=== PATIENT | female | born 1945 | race Caucasian/White ===

== ENCOUNTER 2016-12-23 17:03 | Inpatient (IN) ==
[2016-12-23] MEDS ORDERED: Furosemide 40 MG/4 ML VIAL IVP ONE (19:08)
--- NOTE | 2016-12-23 19:15 | Internal Med History&Physical ---
Date of Encounter: 12/23/16 Time of Encounter: 19:09 Assessment and Plan (1) HTN (hypertension) Current visit: Yes Status: Chronic resume home meds Qualifiers: Hypertension type: essential hypertension Qualified Code(s): I10 - Essential (primary) hypertension (2) NSTEMI (non-ST elevated myocardial infarction) Current visit: Yes Status: Acute no chest pain but nstemi (3) UTI (urinary tract infection) Current visit: Yes Status: Acute start on rocephine ansd send ua and cultures Qualifiers: Urinary tract infection type: acute cystitis Hematuria presence: without hematuria Qualified Code(s): N30.00 - Acute cystitis without hematuria (4) Diabetes Current visit: Yes Status: Chronic start on sliding scale Qualifiers: Diabetes mellitus type: type 2 Diabetes mellitus complication status: with unspecified complications Diabetes mellitus long term care pharmacist insulin use: unspecified intermediate insulin use status Qualified Code(s): E11.8 - Type 2 diabetes mellitus with unspecified complications (5) Smoker Current visit: Yes Status: Chronic chronic (6) Acute and chronic respiratory failure Current visit: Yes Status: Acute acute on chronic respiratory failure placed on bipap will place on dueneb and low dose steroid Qualifiers: Respiratory failure complication: hypoxia and hypercapnia Qualified Code(s) : J96.21 - Acute and chronic respiratory failure with hypoxia; J96.22 - Acute and chronic respiratory failure with hypercapnia (7) Pleural effusion Current visit: Yes Status: Acute liekly due to chf consider thoracentesis if no significant resolution with diuresis (8) Acute exacerbation of chronic obstructive airways disease Current visit: No Status: Acute acute on chronic exercebation (9) Congestive heart failure Current visit: No Status: Acute no documented lv function will diuress, obtain echo and cardiology consult Qualifiers: Congestive heart failure type: unspecified congestive heart failure type Congestive heart failure chronicity: unspecified congestive heart failure chronicity Qualified Code(s): I50.9 - Heart failure, unspecified Internal Medicine - H&P: HPI Chief complaint: sob Admitted From: Hospital to Hospital Transfer Plans for Post Hospital Care: Home History of present illness: Ms. Fontanez is a 71 year old female Patient with history of obesity, diabetes, hypertension, COPD, smoking, patient presented today to [facility] with shortness of breath and leg swelling for several months more than for 3 months with intermittent wheezing denies any cough, no chest pain symptoms has progressively gotten worse with weakness and fatigue and worsening shortness of breath to do point the family insisted that she would go to emergency room called 911 on her behalf Hospital ER ABG showed respiratory failure PH 7.28 PCO2 was 75 and placed on bipap and transfered here admitted to 2N also has massive leg edema chest x-ray consistent with congestive heart failure , no pneumonia bialt pleural effusion right more than left she was transferred here for further treatment troponin 0.14 , BNP 2753 UA also shows a UTI patient is awake on BiPAP denies any chest pain appears comfortable at this point. Past Med Surg Social Fam HX - Past Medical History Medical history: COPD, diabetes Psychiatric history: no psych history - Social History Smoking Status: Current every day smoker Smokeless Tobacco Status: No Alcohol use: none Drug use: none Internal Medicine - H&P: Meds No Known Home Drugs 12/23/16 [History] Allergies No Known Allergies Allergy (Verified 12/23/16 14:57) All Systems PM: A 10-system review of systems was performed and is negative for pertinent findings except as documented above in the HPI. - Constitutional Constitutional: fatigue - EENT Eyes: no change in vision, no discharge, no pain, no photophobia Ears: no ear discharge, no ear pain, no tinnitus Nose, mouth and throat: no dysphagia, no nasal discharge, no neck pain, no sore throat - Cardiovascular Cardiovascular ROS IM: dyspnea, dyspnea on exertion - Respiratory Respiratory: dyspnea, dyspnea on exertion, wheezing - Gastrointestinal Gastrointestinal: no abdominal pain, no diarrhea, no hematemesis, no hematochezia, no melena, no nausea, no vomiting - Genitourinary Genitourinary: no change in urinary stream, no dysuria, no flank pain, no hematuria - Musculoskeletal Musculoskeletal ROS IM: no numbness, no tingling - Integumentary Integumentary IM: no rash, no unusual bruising - Neurological Neurological ROS: no confusion, no convulsions, no focal weakness, no numbness, no tingling, no tremor(s) - Hematologic/Lymphatic Hematologic/Lymphatic: no easy bruising - Constitutional Vitals: Resp Pulse Ox 19 94 12/23/16 18:45 12/23/16 18:45 General appearance: Present: mild distress - Eye Eye exam: Present: PERRL, conjuntiva pink, sclera anicteric Pupils: Present: PERRL - Neck Neck exam general surgery: Present: supple, trachea midline. Absent: lymphadenopathy - Respiratory Respiratory exam: Present: rales, rhonchi, wheezes - Cardiovascular Cardiovascular exam: Present: systolic murmur, tachycardia - GI/Abdominal GI/Abdominal exam: Present: normal bowel sounds, soft, no peritoneal signs. Absent: distended, tenderness - Extremities Exam Extremities exam: Present: pedal edema, warm
[2016-12-23] MEDS ORDERED: Naloxone 0.4 MG/ML INJ IVP PRN (19:24)
[2016-12-23] MEDS ORDERED: *HR* Morphine 2 MG/ML SYRINGE IVP PRN (19:24)
[2016-12-23] MEDS ORDERED: Ondansetron 4 MG/2 ML VIAL IVP PRN (19:24)
[2016-12-23] MEDS ORDERED: MOM Conc 10 ML UD.LIQ PO PRN (19:24)
[2016-12-23] MEDS ORDERED: Ipratropium/Albuterol Neb 3 ML IH PRN (19:28)
[2016-12-23] MEDS: Ipratropium/Albuterol Neb 3 ML IH SCH ×2 (20:04→23:57)
[2016-12-23 20:08] LABS: ABG Base Excess 9.2 mEq/L (-2.0 to 3.0); ABG HCO3 39.2 mEQ/L (21-27); ABG Oxygen Saturation 90 % (95-98); ABG PH 7.32 pH Units (7.32-7.45); ABG PO2 63 mmHg (85-104); ABG TCO2 41.5 mEq/L (20-26)
[2016-12-23 20:09] LABS: Blood Gas FiO2 40 %
[2016-12-23 20:10] LABS: ABG PCO2 76 mmHg (35-45)
[2016-12-23] MEDS: Furosemide 40 MG/4 ML VIAL IVP SCH (23:42)
[2016-12-24 03:55] LABS: Basophils % 0.3 %; Hematocrit 47.8 % (35.3-44.9); Hemoglobin 14.5 g/dL (11.5-15.4); Immature Granulocytes % 0.3 % (0-4); Lymphocytes # 0.5 K/mcL (0.6-4.6); Lymphocytes % 11.3 %; Mean Corpuscular HGB Conc 30.3 g/dL (31.6-35.5); Mean Corpuscular Hemoglobin 27.3 pg (28.0-33.3); Mean Platelet Volume 11.4 fL (9.4-12.4); Monocytes # 0.2 K/mcL (0.0-1.3); Monocytes % 3.8 %; Neutrophils # 3.4 K/mcL (1.6-8.9); Platelet Count 101 K/mcL (140-400); Red Blood Count 5.31 M/mcL (3.82-4.97); Red Cell Distribution Width 16.2 % (11.5-14.5); Segmented Neutrophils % 84.3 %
[2016-12-24] MEDS: Ipratropium/Albuterol Neb 3 ML IH SCH ×6 (04:08→23:42)
[2016-12-24 04:12] LABS: Alanine Aminotransferase 7 Units/L (0-55); Albumin 2.7 g/dL (3.5-5.0); Albumin/Globulin Ratio 0.8 (1.1-2.2); Alkaline Phosphatase 88 Units/L (38-126); Aspartate Amino Transferase 15 Units/L (5-34); BUN/Creatinine Ratio 14 (6-26); Bilirubin,Total 0.6 mg/dL (0.2-1.2); Blood Urea Nitrogen 10 mg/dL (7-20); Calcium 7.9 mg/dL (8.6-10.8); Carbon Dioxide 31 mEq/L (19-29); Chloride 98 mEq/L (98-109); Cholesterol 137 mg/dL (< 200); Globulin 3.5 g/dL (2.4-3.5); Glucose 256 mg/dL (70-99); HDL Cholesterol 34 mg/dL (40-59); LDL Cholesterol,Calculated 86 mg/dL (0-99); Magnesium 1.4 mg/dL (1.6-2.6); Osmolality,Calculated 298 (280-300); Sodium 140 mEq/L (136-145); Total Protein 6.2 g/dL (6.0-8.3); Triglycerides 85 mg/dL (< 150); eGFR For African Americans > 60 (> 60); eGFR For Non-African Americans > 60 (> 60)
[2016-12-24] MEDS: MethylPREDNISolone 40 MG/ML VIAL IVP SCH ×2 (06:00→17:15)
[2016-12-24] MEDS: *HR* Enoxaparin 40 MG/0.4 ML SYRINGE SQ SCH ×2 (06:00→06:22)
--- NOTE | 2016-12-24 09:36 | ECHO - Doppler Report ---
Echocardiogram Name: Nata Fontanez Date of Study: 12/24/2016 Date: 1945 Ht: 62.0 in Medical Record#: [id number] Age: 71 Wt: 227.0 lb Gender: Female BSA: 2.02 Order #: [id number] Location: [facility] Room #: 2N08 Reading Physician: Alejandro Aponte DO, TEJ KELLY Contact Lens Molder: Getachew Mao RN Ordering Physician: Bhakti Sarkar MD Primary Physician: None Indications: Congestive heart failure Impressions: LVEF 40%. Normal LV chamber size and wall thickness. Gllobal left ventricular systolic dysfunction. Mild left ventricular diastolic dysfunction. Mildly dilated right ventricle with normal function. Moderately dilated left atrium. Moderately dilated right atrium. Mild aortic regurgitation. Mild tricuspid regurgitation. Moderate pulmonary hypertension. Estimated RVSP is 48 mmHg. Left Ventricular Wall Motion: Rest Echo Findings The apex, apical inferior, mid inferior, basal inferior, apical anterior, mid anterior, basal anterior, apical septal, mid inferior septal, basal inferior septal, apical lateral, mid anterior lateral, basal anterior lateral, mid anterior septal, mid inferior lateral, basal anterior septal and basal inferior lateral spain were hypokinetic. Findings: Study Quality * Technically adequate exam. ECG Findings * Normal sinus rhythm. Left Ventricle * LVEF 40%. * Normal LV chamber size and wall thickness. * Gllobal left ventricular systolic dysfunction. * Mild left ventricular diastolic dysfunction. Right Ventricle * Mildly dilated right ventricle with normal function. Left Atrium * Moderately dilated left atrium. Right Atrium * Moderately dilated right atrium. Interatrial Septum * Interatrial septum not well evaluated. Aortic Valve * Trileaflet aortic valve. * Mild aortic regurgitation. * No aortic stenosis. Mitral Valve * Mildly thickened mitral valve leaflets. * Trace mitral regurgitation. * No mitral stenosis. Tricuspid Valve * Normal tricuspid valve structure. * Mild tricuspid regurgitation. * Moderate pulmonary hypertension. * Estimated RVSP is 48 mmHg. * Estimated RA pressure is 5 mmHg. Pulmonic Valve * Normal pulmonic valve structure and function. * Trace pulmonic regurgitation. Aorta * Normally sized aortic root. Pericardium * There is a trivial pericardial effusion present. IVC * Normal IVC dimensions and inspiratory collapse. Pulmonary Artery * Normal visualized portions of the main pulmonary artery. History Hypertension Diabetes History of Smoking Years 55 Packs 1 Congestive Heart Failure Measurements: BP: 133/ 69 2D Normal Values RVIDd: 3.70 cm <2.7 cm IVSd: 1.10 cm 0.6 - 1.0 cm LVIDd: 5.40 cm 3.7 - 5.6 cm LVPWd: 1.10 cm 0.6 - 1.1 cm LVIDs: 4.50 cm 1.5 - 3.6 cm LA: 3.80 cm 2.0 - 4.0cm %FS: 21.10 cm >25 % LVOT Diam: 1.80 cm LA volume: 98 Mitral Valve Peak E:.94 m/sec Peak A:1.02 m/sec E/A Ratio:0.9 Peak E' Lat Geraldo:4.87 cm/s Peak E' Med Geraldo:3.31 cm/s E/E' Lat Ratio:19.4 E/E' Med Ratio:28.5 Aortic Valve AI pressure Half-time: 477.00 msec Tricuspid Valve TV Regurg Peak Grad: 43.00mmHg TV Regurg Peak Geraldo: 3.27m/sec Updated by Alejandro Aponte DO, FACShauna, TEJ, REDDY on 12/24/2016 9:29:37 AM electronically signed on 12/24/2016 9:31:04 AM with status of Final Wall Motion Coreas: 1=Normal, 2=Hypokinesis, 3=Akinesis, 4=Dyskinesis, 5=Aneurysmal, 6=Hyperkinetic, X=Not Visualized (Blank)=Missing
[2016-12-24] MEDS: Furosemide 40 MG/4 ML VIAL IVP SCH ×2 (09:58→17:21)
--- NOTE | 2016-12-24 10:05 | Cardiology Consult Note ---
<Edilberto Stone Jimena - Last Filed: 12/24/16 10:00> Date of Encounter: 12/24/16 Time of Encounter: 10:00 Assessment and Plan (1) Congestive heart failure Current Visit: Yes Status: Acute Months of dyspnea, leg swelling, and fatigue BNP of 2539 Echo is pending today. Will follow up and give further recommendations Agree with diuresis and Bipap as needed Troponin likely elevated due to demand ischemia Qualifiers: Congestive heart failure type: unspecified congestive heart failure type Congestive heart failure chronicity: unspecified congestive heart failure chronicity Qualified Code(s): I50.9 - Heart failure, unspecified (2) Elevated troponin Current Visit: Yes Status: Acute Troponin elevated 0.14, 0.12, 0.11 Likely due to demand ischemia Cardiac rehab not indicated at this time Do not recommend full anticoagulation at this time as this is likely due to demand ischemia and not an acute MO Recommend starting 81mg of asa (3) HTN (hypertension) Current Visit: Yes Status: Chronic Agree with starting lisinipril and coreg. Qualifiers: Hypertension type: essential hypertension Qualified Code(s): I10 - Essential (primary) hypertension Discussion w patient/family: The assessment and plan as outlined above was discussed with the patient and/or family members who expressed understanding and agreement. All questions were answered. Thank you for involving us in the care of your patient. Please call with any questions. History of Present Illness Consult date: 12/24/16 Consult reason: New onset CHF, elevated troponin Chief complaint: Dyspnea, leg swelling, fatigue History of present illness: Ms. Fontanez is a 71 year old female who reports she has not seen a physician in many years. She reports dyspnea, leg swelling, and fatigue over the last few months. It has been worsening to the point where yesterday she was unable to get out of bed so called EMS. Her SPO2 was 74% on RA in the ER and she was placed on BiPap. She reports she is feeling much better while on Bipap. It does seem years ago she was diagnosed with COPD, DM, and HTN. Cardiology was consulted due to new CHF, with elevated troponin 0.14, 0.12, 0.11, and elevated BNP 2539. Was also found to have a UTI. She denies having chest pain but does have dyspnea. Past Med Surg Social Fam HX - Past Medical History Medical history: COPD, diabetes Psychiatric history: no psych history - Social History Smoking Status: Current every day smoker Smokeless Tobacco Status: No Alcohol use: none Drug use: none Medications and Allergies No Known Home Drugs 12/23/16 [History] Allergies No Known Allergies Allergy (Verified 12/23/16 14:57) All Systems Review: A 10-system review of systems was performed and is negative for pertinent findings except as documented above in the HPI. - Constitutional Constitutional: fatigue, weakness, no fever(s) - Cardiovascular Cardiovascular: dyspnea at rest, no chest pain at rest, no chest pain with exertion, no palpitations, no syncope - Respiratory Respiratory: cough - Gastrointestinal Gastrointestinal: no abdominal pain - Genitourinary Genitourinary: no dysuria - Musculoskeletal Musculoskeletal: other (LE edema bilateral) - Hematological/Lymphatic Hematologic/Lymphatic: no easy bleeding Physical Examination Vital Signs, Last 4 Hours Temp Pulse Resp BP Pulse Ox 12/24/16 07:41 15 133/69 96 12/24/16 07:38 97.8 F 84 14 133/69 94 General: Conversant HEENT: Atraumatic Neck: No JVD Cardiac: Reg Rate and Rhythm, Normal S1 and S2 Lungs: Other (Bipap. Wheezes present.) Neuro: Alert and responsive Abdomen: Soft Skin: Other (LE edema with mild erythema. Bilateral. 3+ pitting) Extremities: No Cyanosis, Normal Pulses Results 12/24/16 03:10 12/24/16 03:10 Lab Results 12/23/16 12/24/16 12/24/16 20:12 03:10 03:10 WBC 4.0 L Hgb 14.5 Hct 47.8 H Plt Count 101 L Sodium Potassium Chloride Carbon Dioxide BUN Creatinine Glucose Calcium Magnesium Total Bilirubin AST ALT Alkaline Phosphatase Troponin I 0.12 H* 0.11 H* B-Natriuretic Peptide 12/24/16 12/24/16 12/24/16 03:10 03:10 08:08 WBC Hgb Hct Plt Count Sodium 140 Potassium 4.0 Chloride 98 Carbon Dioxide 31 H BUN 10 Creatinine 0.73 Glucose 256 H Calcium 7.9 L Magnesium 1.4 L Total Bilirubin 0.6 AST 15 ALT 7 Alkaline Phosphatase 88 Troponin I 0.10 H* B-Natriuretic Peptide 2539 H - EKG Interpretation EKG results cardiology: personally reviewed Consult Discharge Plan - Plan Referrals: NO,PCP [Primary Care Provider] - <Zysek,Lissy - Last Filed: 12/24/16 12:10> Date of Encounter: 12/24/16 Assessment and Plan Discussion w patient/family: The assessment and plan as outlined above was discussed with the patient and/or family members who expressed understanding and agreement. All questions were answered. Thank you for involving us in the care of your patient. Please call with any questions. History of Present Illness History of present illness: Ms. Fontanez is a 71 year old female All Systems Review: A 10-system review of systems was performed and is negative for pertinent findings except as documented above in the HPI. Physical Examination Vital Signs, Last 4 Hours Pulse Pulse Ox 12/24/16 09:50 80 93 Results 12/24/16 03:10 12/24/16 03:10 Lab Results 12/23/16 12/24/16 12/24/16 20:12 03:10 03:10 WBC 4.0 L Hgb 14.5 Hct 47.8 H Plt Count 101 L Sodium Potassium Chloride Carbon Dioxide BUN Creatinine Glucose Calcium Magnesium Total Bilirubin AST ALT Alkaline Phosphatase Troponin I 0.12 H* 0.11 H* B-Natriuretic Peptide 12/24/16 12/24/16 12/24/16 03:10 03:10 08:08 WBC Hgb Hct Plt Count Sodium 140 Potassium 4.0 Chloride 98 Carbon Dioxide 31 H BUN 10 Creatinine 0.73 Glucose 256 H Calcium 7.9 L Magnesium 1.4 L Total Bilirubin 0.6 AST 15 ALT 7 Alkaline Phosphatase 88 Troponin I 0.10 H* B-Natriuretic Peptide 2539 H - Attending Attestation I examined this patient and my medical decision-making was reviewed with the LINK TRAINER MAINTENANCE WORKER/PA/Advanced Practice Nurse/Resident Physician. I agree with the documented findings, disposition and treatment plan. Ms. Fontanez presents with hypoxic respiratory failure, congestive symptoms with elevated BNP and mild elevation of troponin. Her symptoms have been ongoing and progressive over the past 3 months. Her ECG does not demonstrate acute findings but possible old anteroseptal MO. I agree with IV diuresis and addition of aspirin. At the time I evaluated and spoke with the patient, her echo was pending. However, results returned, demonstrating reduced LVEF, 40%. Troponin elevation was initially thought to be demand ischemia. Now given new findings of reduced LVEF, would recommend considering LHC. I will discuss this with the patient. In the meantime, recommend starting full anticoagulation. Consider starting statin once LHC results return. LDL and TG are good.
--- NOTE | 2016-12-24 11:16 | Internal Med Progress Note ---
Date of Encounter: 12/24/16 Time of Encounter: 09:00 - Assessment and plan (1) DVT prophylaxis Current Visit: Yes Status: Acute Assessment and plan: On lovenox sc (2) Acute exacerbation of chronic obstructive airways disease Current Visit: No Status: Acute Assessment and plan: Will continue steroid and bronchodilator treatment. Smoking cessation education. Continue supportive treatment with BiPAP. (3) Congestive heart failure Current Visit: Yes Status: Acute Assessment and plan: Patient has elevated BNP, with pleural effusion, leg swelling. Consider CHF. No history of CHF. - We will obtain echo. - Continue diuretics. - Strict I and O - Cardiology consult appreciated Qualifiers: Congestive heart failure type: unspecified congestive heart failure type Congestive heart failure chronicity: unspecified congestive heart failure chronicity Qualified Code(s): I50.9 - Heart failure, unspecified (4) HTN (hypertension) Current Visit: Yes Status: Chronic Assessment and plan: BP is stable, continue home medications Qualifiers: Hypertension type: essential hypertension Qualified Code(s): I10 - Essential (primary) hypertension (5) UTI (urinary tract infection) Current Visit: Yes Status: Acute Assessment and plan: Continue IV Rocephin. Qualifiers: Urinary tract infection type: acute cystitis Hematuria presence: without hematuria Qualified Code(s): N30.00 - Acute cystitis without hematuria (6) Diabetes Current Visit: Yes Status: Chronic Assessment and plan: Not sure home medication, glucose is high, will place patient on the sliding scale coverage. Qualifiers: Diabetes mellitus type: type 2 Diabetes mellitus complication status: with unspecified complications Diabetes mellitus intermediate accountant insulin use: unspecified detention insulin use status Qualified Code(s): E11.8 - Type 2 diabetes mellitus with unspecified complications (7) Acute and chronic respiratory failure Current Visit: Yes Status: Acute Assessment and plan: Due to COPD and CHF exacerbation. - ABG reviewed, patient has a CO2 retention, pH is not acidosis, possibly chronic CO2 retention, no previous number available. - Continue oxygen and BiPAP supportive treatment - Treat underlying COPD and CHF. Qualifiers: Respiratory failure complication: hypoxia and hypercapnia Qualified Code(s) : J96.21 - Acute and chronic respiratory failure with hypoxia; J96.22 - Acute and chronic respiratory failure with hypercapnia (8) Pleural effusion Current Visit: Yes Status: Acute Assessment and plan: Most likely due to CHF. Will continue diuretics and repeat chest x-ray. - Time Spent With Patient 25 - 35 minutes - Subjective Interval history: Patient is a 71-year-old female admitted for shortness of breath, consider CHF exacerbation. Past medical history is significant for COPD, diabetes. Patient was seen and examined. She is awake alert, oriented 3. She said shortness of breath has significantly improved after treatment. Denies chest pain. She tolerates BiPAP well. Her vitals are stable. Cardiology consult appreciated. Continued diuretic treatment and supportive treatment. - Constitutional Vitals: Temp Pulse Resp BP Pulse Ox 97.8 F 80 15 133/69 93 12/24/16 07:38 12/24/16 09:50 12/24/16 07:41 12/24/16 07:41 12/24/16 09:50 General appearance: Present: mild distress, A&O X 3, answers questions appropriately - Head Head exam: Present: atraumatic, normocephalic - Eye Eye exam: Present: PERRL, conjuntiva pink, sclera anicteric Pupils: Present: PERRL - Neck Neck exam general surgery: Present: supple, trachea midline. Absent: lymphadenopathy - Respiratory Respiratory exam: Present: CTAB. Absent: accessory muscle use, rales, rhonchi, wheezes - Cardiovascular Cardiovascular exam: Present: RRR, +S1, +S2. Absent: diastolic murmur, gallop, rubs, systolic murmur - GI/Abdominal GI/Abdominal exam: Present: normal bowel sounds, soft, no peritoneal signs. Absent: distended, tenderness - Extremities Exam Extremities exam: Present: warm, radial pulses palpable and symetrical. Absent : calf tenderness, cyanotic, pedal edema - Neurological Exam Neurological exam: Present: CN II-XII intact, oriented X3, no focal deficits. Absent: pronater drift, facial droop, speech deficit - Skin Skin exam: Present: dry, intact Internal Medicine: Result - Labs CBC & Chem 7: 12/24/16 03:10 12/24/16 03:10 Labs: Short CBC 12/24/16 Range/Units 03:10 WBC 4.0 L (4.3-11.1) K/mcL Hgb 14.5 (11.5-15.4) g/dL Hct 47.8 H (35.3-44.9) % Plt Count 101 L (140-400) K/mcL Neutrophils # 3.4 (1.6-8.9) K/mcL BMP 12/24/16 03:10 Sodium 140 Potassium 4.0 Chloride 98 Carbon Dioxide 31 H BUN 10 Creatinine 0.73 Glucose 256 H Calcium 7.9 L Cardiac Enzymes 12/23/16 12/24/16 12/24/16 Range/Units 20:12 03:10 08:08 Troponin I 0.12 H* 0.11 H* 0.10 H* (0-0.03) ng/mL Liver Function 12/24/16 Range/Units 03:10 Total Bilirubin 0.6 (0.2-1.2) mg/dL AST 15 (5-34) Units/L ALT 7 (0-55) Units/L Alkaline Phosphatase 88 (38-126) Units/L Albumin 2.7 L (3.5-5.0) g/dL - ABG Interpretation ABG results: ABG ABG pH 7.32 pH Units (7.32-7.45) 12/23/16 19:55 ABG pCO2 76 mmHg (35-45) H* 12/23/16 19:55 ABG pO2 63 mmHg (85-104) L 12/23/16 19:55 ABG O2 Saturation 90 % (95-98) L 12/23/16 19:55 Consult Discharge Plan - Plan Referrals: NO,PCP [Primary Care Provider] -
[2016-12-24] MEDS ORDERED: D5% in Water 1,000 ML IVC PRN (11:25)
[2016-12-24] MEDS ORDERED: Dextrose Gel 15 GM PO PRN ×2 (11:25)
[2016-12-24] MEDS ORDERED: *HR* Dextrose 50 % in Water (Syg) 50 ML SYRINGE IVP PRN (11:25)
[2016-12-24] MEDS: Insulin LISPRO 300 UNITS/3 ML VIAL SQ SCH ×3 (12:13→22:53)
[2016-12-24] MEDS: Aspirin 81 MG TAB.CHEW PO SCH (12:14)
[2016-12-24] MEDS ORDERED: *HR* Heparin 5,000 UNIT/ML VIAL IVP ONE (13:06)
[2016-12-24] MEDS ORDERED: *HR* Heparin 5,000 UNIT/ML VIAL IVP PRN ×2 (13:06)
--- NOTE | 2016-12-24 13:06 | Event Note ---
<Edilberto Stoen - Last Filed: 12/24/16 13:05> Date of Encounter: 12/24/16 Time of Encounter: 13:05 Echo shows decreased LVEF of 40%. Will start anticoagulation (heparin drip) with likely left heart cath possibly tomorrow. No plan for LHC today while she is on Bipap. <Lissy Zavala - Last Filed: 12/24/16 16:03> Date of Encounter: 12/24/16 Echo returned with reduced LVEF. I spoke with the patient and recommend an ischemic evaluation. However, she is on BIPAP and may not be able to lay flat. We will keep her NPO after midnight tonight and re-evaluate tomorrow. We will start anticoagulation. Continue IV diuresis.
[2016-12-24 13:39] LABS: Hematocrit 46.3 % (35.3-44.9); Hemoglobin 13.8 g/dL (11.5-15.4); Immature Platelets 7.5 % (1.1-6.1); Mean Corpuscular HGB Conc 29.8 g/dL (31.6-35.5); Mean Corpuscular Hemoglobin 26.6 pg (28.0-33.3); Mean Corpuscular Volume 89.4 fL (83.0-100.0); Mean Platelet Volume 10.4 fL (9.4-12.4); Red Blood Count 5.18 M/mcL (3.82-4.97); Red Cell Distribution Width 16.3 % (11.5-14.5)
[2016-12-24 13:49] LABS: INR 1.1; Prothrombin Time 11.4 Seconds (9.4-12.1)
[2016-12-24 13:52] LABS: Activated Partial Thrombo Time 27.2 Seconds (26.0-36.0)
[2016-12-24] MEDS: Heparin 25,000 UNIT/500 ML D5W 25,000 UNIT/500 ML MLS IVC SCH (15:54)
[2016-12-24] MEDS ORDERED: Albuterol 2.5 MG/3 ML NEBULIZER IH PRN (16:11)
[2016-12-24] MEDS ORDERED: Magnesium Sulfate 2 GM in D5% in Water 100 ML IVPB ONE (16:15)
[2016-12-25] MEDS: Ipratropium/Albuterol Neb 3 ML IH SCH ×6 (04:33→23:10)
[2016-12-25 05:14] LABS: Basophils % 0.1 %; Hemoglobin 13.5 g/dL (11.5-15.4); Immature Granulocytes % 0.4 % (0-4); Lymphocytes # 0.8 K/mcL (0.6-4.6); Lymphocytes % 11.4 %; Mean Corpuscular Hemoglobin 26.7 pg (28.0-33.3); Mean Corpuscular Volume 89.1 fL (83.0-100.0); Mean Platelet Volume 11.7 fL (9.4-12.4); Monocytes # 0.3 K/mcL (0.0-1.3); Monocytes % 4.3 %; Neutrophils # 5.7 K/mcL (1.6-8.9); Platelet Count 116 K/mcL (140-400); Red Blood Count 5.05 M/mcL (3.82-4.97); Red Cell Distribution Width 16.1 % (11.5-14.5); Segmented Neutrophils % 83.8 %
[2016-12-25 05:35] LABS: BUN/Creatinine Ratio 22 (6-26); Blood Urea Nitrogen 17 mg/dL (7-20); Calcium 7.9 mg/dL (8.6-10.8); Carbon Dioxide 36 mEq/L (19-29); Chloride 95 mEq/L (98-109); Glucose 171 mg/dL (70-99); Hemoglobin A1C 7.7 %; Osmolality,Calculated 298 (280-300); Potassium 4.1 mEq/L (3.5-4.5); Sodium 141 mEq/L (136-145); eGFR For African Americans > 60 (> 60); eGFR For Non-African Americans > 60 (> 60)
[2016-12-25] MEDS: MethylPREDNISolone 40 MG/ML VIAL IVP SCH ×2 (06:09→17:01)
[2016-12-25] MEDS: Insulin LISPRO 300 UNITS/3 ML VIAL SQ SCH ×4 (08:03→22:22)
[2016-12-25] MEDS: Aspirin 81 MG TAB.CHEW PO SCH (08:29)
[2016-12-25] MEDS: Furosemide 40 MG/4 ML VIAL IVP SCH ×2 (09:29→17:01)
[2016-12-25 09:53] LABS: Bilirubin,Urine Small (Negative); Blood,Urine Large (Negative); Clarity,Urine Turbid (Clear); Color,Urine Dark Yellow (Yellow); Glucose,Urine (UA) Normal (Normal); Ketones,Urine Negative (Negative); Leukocyte Esterase,Urine Small (Negative); Nitrite,Urine Negative (Negative); PH,Urine 5.5 pH Units (5.0-8.0); Protein,Urine 30 mg/dL (Neg-Trace); Specific Gravity,Urine 1.021 (1.010-1.025); Urobilinogen,Urine Normal (Normal)
[2016-12-25 09:56] LABS: Bacteria,Urine None Seen per hpf (None-Few); RBC,Urine 30-50 per hpf (0-3); Squamous Epithelial Cell,Urine Many per lpf (None-Few)
--- NOTE | 2016-12-25 10:07 | Event Note ---
Date of Encounter: 12/25/16 Time of Encounter: 10:04 - Cardiology Event Note Pt resting comfortably with no distress. Continues to require high flow O2 at 12 L NC. Discussed with RN. Plan to wean off oxygen as tolerated. SPO2 currently 95% on 12 L. Once requiring less oxygen we will re-assess if she can lay flat. Possible LHC later today. Continue IV lasix. Currently denies chest pain.
--- NOTE | 2016-12-25 10:22 | Cardiology Progress Note ---
Date of Encounter: 12/25/16 Time of Encounter: 10:20 Assessment and Plan (1) Congestive heart failure Current Visit: Yes Status: Acute TTE shows EF 40%, moderately dilated right atrium. Mildly dilated RV with normal function. Mild AR, mild TR. Moderate pulmonary hypertension. Responding well to IV diuretic. Net negative -3367ml. 24 hour negative-1800ml. Continue as tolerated. Monitor BMP. Maximize bb and latasha-inhibitor as tolerated. Will increase carvedilol. 5 beat run NSVT seen in telemetry review. Potassium 4.1. Magnesium 1.4 and given replacement. Will re-check. Strict I&O and daily weights. Low sodium diet. CHF education discussed. [facility] recommended to evaluate ischemic cause. Indication, risks, alternatives and benefits of procedure discussed. Pt agrees to proceed once improved from respiratory standpoint. Will re-evaluate in am. Qualifiers: Congestive heart failure type: unspecified congestive heart failure type Congestive heart failure chronicity: unspecified congestive heart failure chronicity Qualified Code(s): I50.9 - Heart failure, unspecified (2) Elevated troponin Current Visit: Yes Status: Acute Troponin elevated 0.14, 0.12, 0.11 Likely due to demand ischemia Cardiac rehab not indicated at this time Do not recommend full anticoagulation at this time as this is likely due to demand ischemia and not an acute MD Recommend starting 81mg of asa (3) Acute exacerbation of chronic obstructive airways disease Current Visit: No Status: Acute Acute on chronic exacerbation. Recommend pulmonology evaluation to help optimize. Pulmonology notified. Discussion w patient/family: The assessment and plan as outlined above was discussed with the patient and/or family members who expressed understanding and agreement. All questions were answered. Thank you for involving us in the care of your patient. Please call with any questions. Subjective Principal diagnosis: NSTEMI, CHF Interval history: Now on high flow nasal cannula at 12 L. Denies chest pain. Objective Vital Signs, Last 4 Hours Temp Pulse Resp BP Pulse Ox 12/25/16 08:33 68 93 12/25/16 07:48 18 94 12/25/16 07:38 97.9 F 69 14 121/67 94 General: Conversant, No Apparent Distress HEENT: Atraumatic, Normocephaly, Mucus Membranes Moist Neck: No JVD, Normal carotid pulses Cardiac: Reg Rate and Rhythm, Normal S1 and S2, No Murmur Lungs: Other (Lung sounds diminished throughout. ) Neuro: Alert and responsive, No focal deficits noted Abdomen: Soft, Non-Tender Skin: No rashes noted on visualized skin Musculoskeletal: No Chest Wall Tenderness Extremities: No Clubbing, No Cyanosis, Normal Pulses, Other (2+ BLE edema up to knees with redness. ) Results 12/25/16 03:59 12/25/16 03:59 Lab Results 12/24/16 12/24/16 12/24/16 13:16 13:16 22:05 WBC 4.9 Hgb 13.8 Hct 46.3 H Plt Count 109 L INR 1.1 APTT 27.2 49.7 H D Sodium Potassium Chloride Carbon Dioxide BUN Creatinine Glucose Calcium 12/25/16 12/25/16 12/25/16 03:59 03:59 03:59 WBC 6.8 Hgb 13.5 Hct 45.0 H Plt Count 116 L INR APTT 39.9 H Sodium 141 Potassium 4.1 Chloride 95 L Carbon Dioxide 36 H BUN 17 Creatinine 0.76 Glucose 171 H Calcium 7.9 L - Imaging and Cardiology Echo: report reviewed - EKG Interpretation EKG results cardiology: other (24 hour telemetry review shows avg HR 72 bpm. NSR. There was one 5 beat run of NSVT.) Consult Discharge Plan - Plan Referrals: NO,PCP [Primary Care Provider] -
--- NOTE | 2016-12-25 10:24 | Internal Med Progress Note ---
Date of Encounter: 12/25/16 Time of Encounter: 10:24 - Assessment and plan (1) Acute exacerbation of chronic obstructive airways disease Current Visit: No Status: Acute Assessment and plan: Continue O2 supplements Cardiology consulted pulmonary, will follow recs Continue solumedrol Continue duonebs (2) Congestive heart failure Current Visit: Yes Status: Acute Assessment and plan: Patient has elevated BNP, with pleural effusion, leg swelling. TTE shows EF 40%, moderately dilated right atrium. Mildly dilated RV with normal function. Mild AR, mild TR. Moderate pulmonary hypertension. I/O -3L Continue diuresis Continue BB, ACEI Monitor renal function Evidence of suspected ischemis on ECHO For [facility] when stable Qualifiers: Congestive heart failure type: unspecified congestive heart failure type Congestive heart failure chronicity: unspecified congestive heart failure chronicity Qualified Code(s): I50.9 - Heart failure, unspecified (3) HTN (hypertension) Current Visit: Yes Status: Chronic Assessment and plan: BP is stable, continue home medications Qualifiers: Hypertension type: essential hypertension Qualified Code(s): I10 - Essential (primary) hypertension (4) UTI (urinary tract infection) Current Visit: Yes Status: Acute Assessment and plan: Urine culture from 11/26 not able to interpret Continue IV Rocephin-day 3. Qualifiers: Urinary tract infection type: acute cystitis Hematuria presence: without hematuria Qualified Code(s): N30.00 - Acute cystitis without hematuria (5) Diabetes Current Visit: Yes Status: Chronic Assessment and plan: A1C 7.7 Continue sliding scale ADA diet FS ACHS Qualifiers: Diabetes mellitus type: type 2 Diabetes mellitus complication status: with unspecified complications Diabetes mellitus exterminator termite insulin use: unspecified intermediate insulin use status Qualified Code(s): E11.8 - Type 2 diabetes mellitus with unspecified complications (6) Smoker Current Visit: Yes Status: Chronic Assessment and plan: Tobacco cessation counselling done for 3 minutes (7) Acute and chronic respiratory failure Current Visit: Yes Status: Acute Assessment and plan: Due to COPD and CHF exacerbation. ABG reviewed, patient has a CO2 retention, pH is not acidosis, possibly chronic CO2 retention, no previous number available. Continue oxygen and BiPAP supportive treatment Treat underlying COPD and CHF. Follow pulm recs Qualifiers: Respiratory failure complication: hypoxia and hypercapnia Qualified Code(s) : J96.21 - Acute and chronic respiratory failure with hypoxia; J96.22 - Acute and chronic respiratory failure with hypercapnia (8) Pleural effusion Current Visit: Yes Status: Acute Assessment and plan: Most likely due to CHF. Will continue diuretics and repeat chest x-ray. (9) Elevated troponin Current Visit: Yes Status: Acute Assessment and plan: As in CHF (10) DVT prophylaxis Current Visit: Yes Status: Acute Assessment and plan: On heparin drip - Subjective Interval history: Seen and evaluated at bedside 71 Y/O F being managed for acute on chronic respiratory failure , COPDE, Acute on chronic CHF, UTI She has a PMH of Obesity, DM, HTN, Tobacco abuse She reports improvement in her SOB She is not ambulatory in-patient She is awaiting LHC by cardiology to evaluate ischemia Vitals are stable , except high O2 requirements - Constitutional Vitals: Temp Pulse Resp BP Pulse Ox 97.9 F 68 18 121/67 93 12/25/16 07:38 12/25/16 08:33 12/25/16 07:48 12/25/16 07:38 12/25/16 08:33 VSS, O2 sat 90-92% on 6L O2 by NC Gen: Not in any form of distress, speaks full sentences, Neuro: AAOX3, moves all limbs spontaneously, no focal deficits, no speech abnormality or facial asymmetry HEENT:, Moist mucosa, no cyanosis, AMAN Chest: Diffuse, bilateral expiratory wheezes, no rhonchi, no stridor Heart: S1, S2,no m/g/r Abdomen: Soft, not tender, no palpably enlarged organs Extremities: Bilateral 2+ pitting pedal edema, pulses present and equal bilaterally General appearance: Present: mild distress, A&O X 3, answers questions appropriately Internal Medicine: Result - Labs CBC & Chem 7: 12/25/16 03:59 12/25/16 03:59 Labs: Short CBC 12/24/16 12/25/16 Range/Units 13:16 03:59 WBC 4.9 6.8 (4.3-11.1) K/mcL Hgb 13.8 13.5 (11.5-15.4) g/dL Hct 46.3 H 45.0 H (35.3-44.9) % Plt Count 109 L 116 L (140-400) K/mcL Neutrophils # 5.7 (1.6-8.9) K/mcL BMP 12/25/16 03:59 Sodium 141 Potassium 4.1 Chloride 95 L Carbon Dioxide 36 H BUN 17 Creatinine 0.76 Glucose 171 H Calcium 7.9 L Urine 12/25/16 Range/Units 09:30 Urine Color Dark Yellow (Yellow) Urine Clarity Turbid A (Clear) Urine pH 5.5 (5.0-8.0) pH Units Ur Specific [place] 1.021 (1.010-1.025) Urine Protein 30 H (Neg-Trace) mg/dL Urine Glucose (UA) Normal (Normal) mg/dL - ABG Interpretation ABG results: ABG ABG pH 7.32 pH Units (7.32-7.45) 12/23/16 19:55 ABG pCO2 76 mmHg (35-45) H* 12/23/16 19:55 ABG pO2 63 mmHg (85-104) L 12/23/16 19:55 ABG O2 Saturation 90 % (95-98) L 12/23/16 19:55 PT/INR, D-dimer PT 11.4 Seconds (9.4-12.1) 12/24/16 13:16 Consult Discharge Plan - Plan Referrals: NO,PCP [Primary Care Provider] -
[2016-12-25 10:55] LABS: Magnesium 1.9 mg/dL (1.6-2.6)
--- NOTE | 2016-12-25 11:00 | Pulmonology Consult Note ---
Date of Encounter: 12/25/16 Time of Encounter: 11:00 Assessment and Plan (1) Acute and chronic respiratory failure Current Visit: Yes Status: Acute Ms. Nata Fontanez is a 71-year-old woman who appears to have advanced heart failure likely underlying coronary disease and undiagnosed COPD with evidence of acute on chronic hypoxic/hypercapnic respiratory failure which is I suspect also complicated by undiagnosed obstructive sleep apnea and obesity hypoventilation syndrome. Per echocardiogram she shows evidence reduced EF dilated lA an of elevated right ventricular systolic pressure (with right ventricular volume overload and dilated RA) which is likely a manifestation of group 2 pulmonary hypertension secondary to already venous congestion along with chronic hypoxia from underlying COPD and possibly JAMES She does have evidence of a moderate sized right-sided effusion which is secondary to heart failure. I will discuss with the patient tomorrow possibility of thoracentesis pending repeat chest x-ray Clearly she will benefit from ongoing diuresis and optimization of underlying heart failure which to cardiology service is working on She appears to be exuding features of COPD exacerbation with bilateral expiratory wheezes for which I would recommend 2-3 days of IV steroid (IV solumedrol 40mg BID based upon clinical course) followed by 2 week prednisone taper in addition I have scheduled a MDI to begin daily 2 puffs of Symbicort twice daily she can continue bronchodilator therapy every 2-6 hours as needed At present I would recommend using nasal cannula oxygen to keep saturations greater than 88-92% and the use of noninvasive positive pressure ventilation at night. We will continue to treat patient in the hospital and prior to discharge we can assess for her qualification for nocturnal BiPAP I am convinced that she will require some amount of supplemental oxygen at rest exertion and at night I have also welcomed her to continue to follow with us at time of discharge in the pulmonary clinic for ongoing eval/treatment of COPD/Respiratory Failure Recommend chemical DVT prophylaxis while inpatient I have also counseled her on the need to refrain from tobacco use completely and she should receive nicotine replacement in the form of a patch if not already given Thank you for the consult we will follow closely please call with any questions Qualifiers: Respiratory failure complication: hypoxia and hypercapnia Qualified Code(s) : J96.21 - Acute and chronic respiratory failure with hypoxia; J96.22 - Acute and chronic respiratory failure with hypercapnia (2) COPD with acute exacerbation Current Visit: Yes Status: Acute (3) DVT prophylaxis Current Visit: Yes Status: Acute (4) NSTEMI (non-ST elevated myocardial infarction) Current Visit: Yes Status: Acute (5) Pleural effusion Current Visit: Yes Status: Acute (6) HTN (hypertension) Current Visit: Yes Status: Chronic Qualifiers: Hypertension type: essential hypertension Qualified Code(s): I10 - Essential (primary) hypertension (7) Smoker Current Visit: Yes Status: Chronic (8) Acute exacerbation of chronic obstructive airways disease Current Visit: No Status: Acute History of Present Illness Consult date: 12/25/16 Requesting physician: Lissy Zavala Reason for consult: COPD Chief complaint: Shortness of breath History of present illness: This is a 71-year-old woman He has noticed ongoing worsening dyspnea and lower extremity edema along with fatigue and dyspnea on exertion over the last 3 months symptoms have gotten so bad that family finally forced patient to go to the hospital via EMS. She initially presented to [facility] in acute on chronic hypoxic hypercarbic respiratory failure that improved with BiPAP BNP was very elevated along with troponin patient has been evaluated by cardiology with plan for invasive coronary artery disease evaluation however patient remains quite dyspneic and requiring use of BiPAP along with high amounts of FiO2 pulmonology was consulted to evaluate the patient and make recommendations based upon respiratory failure Patient has not followed up with a doctor in many years perhaps as many as 8 years. She is a long-time smoker of cigarettes she smokes about 1.5 packs a day since the age of 16. Her work history is not notable for any significant environmental or industrial exposures she does not travel and she is not keep any exotic pets. To her knowledge no family history of lung malignancy Despite worsening symptoms over time her unwillingness to see a physician or be hospitalized presented additional care when I question her about this she did not have a great explanation as to why. Past Med Surg Social Fam HX - Past Medical History Medical history: COPD, diabetes Psychiatric history: no psych history - Social History Smoking Status: Current every day smoker Smokeless Tobacco Status: No Alcohol use: none Drug use: none Medications and Allergies No Known Home Drugs 12/23/16 [History] Allergies No Known Allergies Allergy (Verified 12/24/16 12:54) All Systems: A 10-system review of systems was performed and is negative for pertinent findings except as documented above in the HPI. Physical Examination Vital Signs: Vital Signs, Last 4 Hours Temp Pulse Resp BP Pulse Ox 12/25/16 08:33 68 93 12/25/16 07:48 18 94 12/25/16 07:38 97.9 F 69 14 121/67 94 General appearance: no acute distress ENT: oropharynx moist Mallampati (class): 4 Effort: mildly labored Auscultation: bilateral: diminished breath sounds (Right greater than left), wheezes (Expiratory wheezes noted) Cardiovascular: regular rate and rhythm Gastrointestinal: normoactive bowel sounds, non-tender Extremities: edema (2+ to the level of the mid tibia) Musculoskeletal: no deformities normal mental status, non-focal exam mood appropriate Results - Laboratory Findings CBC and BMP: 12/25/16 03:59 12/25/16 03:59 ABG ABG pH 7.32 pH Units (7.32-7.45) 12/23/16 19:55 ABG pCO2 76 mmHg (35-45) H* 12/23/16 19:55 ABG pO2 63 mmHg (85-104) L 12/23/16 19:55 ABG O2 Saturation 90 % (95-98) L 12/23/16 19:55 PT/INR, D-dimer PT 11.4 Seconds (9.4-12.1) 12/24/16 13:16 Abnormal lab findings: Abnormal lab results RBC 5.05 M/mcL (3.82-4.97) H 12/25/16 03:59 Hct 45.0 % (35.3-44.9) H 12/25/16 03:59 MCH 26.7 pg (28.0-33.3) L 12/25/16 03:59 MCHC 30.0 g/dL (31.6-35.5) L 12/25/16 03:59 RDW 16.1 % (11.5-14.5) H 12/25/16 03:59 Plt Count 116 K/mcL (140-400) L 12/25/16 03:59 Immature Plt Fraction 7.5 % (1.1-6.1) H 12/24/16 13:16 APTT 39.9 Seconds (26.0-36.0) H 12/25/16 03:59 ABG pCO2 76 mmHg (35-45) H* 12/23/16 19:55 ABG pO2 63 mmHg (85-104) L 12/23/16 19:55 ABG HCO3 39.2 mEQ/L (21-27) H 12/23/16 19:55 ABG Total CO2 41.5 mEq/L (20-26) H 12/23/16 19:55 ABG O2 Saturation 90 % (95-98) L 12/23/16 19:55 ABG Base Excess 9.2 mEq/L (-2.0 to 3.0) H 12/23/16 19:55 Chloride 95 mEq/L (98-109) L 12/25/16 03:59 Carbon Dioxide 36 mEq/L (19-29) H 12/25/16 03:59 Glucose 171 mg/dL (70-99) H 12/25/16 03:59 POC Glucose 137 (58-89) H 12/25/16 07:49 Hemoglobin A1c 7.7 % (-5.6) H 12/25/16 03:59 Calcium 7.9 mg/dL (8.6-10.8) L 12/25/16 03:59 Troponin I 0.10 ng/mL (0-0.03) H* 12/24/16 08:08 B-Natriuretic Peptide 2539 pg/mL (0-100) H 12/24/16 03:10 Albumin 2.7 g/dL (3.5-5.0) L 12/24/16 03:10 Albumin/Globulin Ratio 0.8 (1.1-2.2) L 12/24/16 03:10 HDL Cholesterol 34 mg/dL (40-59) L 12/24/16 03:10 Urine Clarity Turbid (Clear) A 12/25/16 09:30 Urine Protein 30 mg/dL (Neg-Trace) H 12/25/16 09:30 Urine Blood Large (Negative) H 12/25/16 09:30 Urine Bilirubin Small (Negative) H 12/25/16 09:30 Ur Leukocyte Esterase Small (Negative) H 12/25/16 09:30 Urine Microscopic RBC 30-50 per hpf (0-3) H 12/25/16 09:30 Urine Microscopic WBC 5-15 per hpf (0-3) H 12/25/16 09:30 Ur Squamous Epith Cells Many per lpf (None-Few) H 12/25/16 09:30 - Diagnostic Findings Chest x-ray: report reviewed, image reviewed CT scan - chest: report reviewed, image reviewed - Clinical Findings Intake & Output: Intake & Output 12/24/16 12/25/16 12/25/16 23:59 07:59 15:59 Intake Total 287 / 287 236 / 236 Output Total 1950 / 1950 Balance 287 / 287 -1714 / -1714 Weight 97.3 kg Consult Discharge Plan - Plan Referrals: Demond Venegas, RATING EXAMINER [Advanced Practice Nurse] - 01/01/17 2:15 pm NO,PCP [Primary Care Provider] -
[2016-12-25] MEDS ORDERED: Ipratropium/Albuterol Neb 3 ML IH ONE (11:14)
[2016-12-25] MEDS: Heparin 25,000 UNIT/500 ML D5W 25,000 UNIT/500 ML MLS IVC SCH (13:52)
[2016-12-25] MEDS: Budesonide/Formoterol 160/4.5 MDI IH SCH (20:07)
[2016-12-25 20:34] LABS: Activated Partial Thrombo Time > 360.0 Seconds (26.0-36.0)
[2016-12-25 20:42] LABS: Heparin anti-factor XA UFH 1.83 IU/mL (0.30-0.70)
[2016-12-26] MEDS: Ipratropium/Albuterol Neb 3 ML IH SCH ×6 (03:48→23:37)
[2016-12-26 04:51] LABS: Hematocrit 39.5 % (35.3-44.9); Hemoglobin 11.6 g/dL (11.5-15.4); Immature Granulocytes % 0.3 % (0-4); Immature Platelets 7.5 % (1.1-6.1); Lymphocytes # 0.8 K/mcL (0.6-4.6); Mean Corpuscular HGB Conc 29.4 g/dL (31.6-35.5); Mean Corpuscular Hemoglobin 26.5 pg (28.0-33.3); Mean Corpuscular Volume 90.4 fL (83.0-100.0); Mean Platelet Volume 11.2 fL (9.4-12.4); Monocytes # 0.4 K/mcL (0.0-1.3); Monocytes % 7.5 %; Red Blood Count 4.37 M/mcL (3.82-4.97); Red Cell Distribution Width 15.9 % (11.5-14.5); Segmented Neutrophils % 78.2 %
[2016-12-26 05:03] LABS: BUN/Creatinine Ratio 29 (6-26); Blood Urea Nitrogen 24 mg/dL (7-20); Calcium 7.5 mg/dL (8.6-10.8); Chloride 94 mEq/L (98-109); Glucose 251 mg/dL (70-99); Osmolality,Calculated 305 (280-300); Potassium 4.1 mEq/L (3.5-4.5); Sodium 141 mEq/L (136-145); eGFR For African Americans > 60 (> 60); eGFR For Non-African Americans > 60 (> 60)
[2016-12-26 05:06] LABS: Activated Partial Thrombo Time 158.5 Seconds (26.0-36.0)
[2016-12-26 05:15] LABS: Heparin anti-factor XA UFH 0.99 IU/mL (0.30-0.70)
[2016-12-26 05:16] LABS: Carbon Dioxide 42 mEq/L (19-29)
[2016-12-26 05:22] LABS: Neutrophils # 4.5 K/mcL (1.6-8.9)
[2016-12-26 05:23] LABS: Platelet Count 93 K/mcL (140-400)
[2016-12-26] MEDS: Heparin 25,000 UNIT/500 ML D5W 25,000 UNIT/500 ML MLS IVC SCH (06:47)
[2016-12-26] MEDS: Budesonide/Formoterol 160/4.5 MDI IH SCH (07:50)
[2016-12-26 08:03] LABS: ABG Base Excess 16.5 mEq/L (-2.0 to 3.0); ABG HCO3 45.7 mEQ/L (21-27); ABG Oxygen Saturation 90 % (95-98); ABG PH 7.37 pH Units (7.32-7.45); ABG PO2 60 mmHg (85-104); ABG TCO2 48.1 mEq/L (20-26)
[2016-12-26 08:06] LABS: Blood Gas FiO2 40 %
[2016-12-26 08:15] LABS: ABG PCO2 79 mmHg (35-45)
--- NOTE | 2016-12-26 08:42 | Cardiology Progress Note ---
Date of Encounter: 12/26/16 Time of Encounter: 08:40 Assessment and Plan (1) Congestive heart failure Current Visit: Yes Status: Acute TTE shows EF 40%, moderately dilated right atrium. Mildly dilated RV with normal function. Mild AR, mild TR. Moderate pulmonary hypertension. Responding well to IV diuretic. Net negative -5237ml. 24 hour negative-4184ml. Continue as tolerated. Monitor BMP. Continue bb and latasha-inhibitor as tolerated. No recurrent NSVT seen. Potassium 4.1. Magnesium 1.9. Strict I&O and daily weights. Low sodium diet. CHF education discussed. LHC recommended to evaluate ischemic cause. Indication, risks, alternatives and benefits of procedure discussed. Pt agrees to proceed once improved from respiratory standpoint. CXR yesterday showed moderate right basilar pleural effusion. Bibasilar airspace disease. Possible pulmonary edema. Spo2 only 83% this morning on 5L NC. Patient placed back on bipap. Pt c/o SOB. Discussed with Dr. Zavala. Pulmonology planning for thoracentesis. Will re- assess after thoracentesis to see if patient is stable for LHC. Qualifiers: Qualified Code(s): I50.9 - Heart failure, unspecified (2) Elevated troponin Current Visit: Yes Status: Acute Troponin elevated 0.14, 0.12, 0.11 Likely due to demand ischemia secondary to acute CHF and COPD. Planning for LHC once stable from a respiratory standpoint. Will consider cardiac rehab if she receives PCI. (3) Acute exacerbation of chronic obstructive airways disease Current Visit: No Status: Acute Acute on chronic exacerbation. Pulmonology now following. Discussion w patient/family: The assessment and plan as outlined above was discussed with the patient and/or family members who expressed understanding and agreement. All questions were answered. Thank you for involving us in the care of your patient. Please call with any questions. Subjective Principal diagnosis: NSTEMI, CHF Interval history: Now on 5 l NC this morning. C/o SOB while eating breakfast. Denies chest pain. Objective Vital Signs, Last 4 Hours Temp Pulse Resp BP Pulse Ox 12/26/16 07:00 97.9 F 77 20 127/63 98 General: Conversant HEENT: Atraumatic, Normocephaly, Mucus Membranes Moist Neck: No JVD, Normal carotid pulses Cardiac: Reg Rate and Rhythm, Normal S1 and S2, No Murmur Lungs: Other (Respirations slightly labored while eating. Lungs diminished in posterior bases. ) Results 12/26/16 04:30 12/26/16 04:30 Lab Results 12/25/16 12/25/16 12/25/16 03:59 10:52 19:50 WBC Hgb Hct Plt Count APTT 38.7 H > 360.0 H* D Sodium Potassium Chloride Carbon Dioxide BUN Creatinine Glucose Calcium Magnesium 1.9 12/26/16 12/26/16 12/26/16 04:30 04:30 04:30 WBC 5.8 Hgb 11.6 D Hct 39.5 Plt Count 93 L APTT 158.5 H* D Sodium 141 Potassium 4.1 Chloride 94 L Carbon Dioxide 42 H* BUN 24 H Creatinine 0.83 Glucose 251 H Calcium 7.5 L Magnesium - EKG Interpretation EKG results cardiology: other (24 hour telemetry review shows SR with avg HR 74 bpm. Occasional PVC and couplets noted. No NSVT. No bradycardia or pauses seen . ) Consult Discharge Plan - Plan Referrals: Demond Venegas, HEALTH BENEFITS SPECIALIST [Advanced Practice Nurse] - 01/01/17 2:15 pm NO,PCP [Primary Care Provider] -
--- NOTE | 2016-12-26 08:42 | Pulmonology Progress Note ---
Date of Encounter: 12/26/16 Time of Encounter: 08:40 Assessment and Plan (1) Acute and chronic respiratory failure Current Visit: Yes Status: Acute The etiology of her respiratory failure is multifactorial including heart failure with reduced ejection fraction chronic COPD like a JAMES with obesity hypoventilation syndrome She has evidence of group to and group 3 pulmonary hypertension from above She also has a chronic metabolic alkalosis that is worsening which likely reflects ongoing diuresis there is been no change in her renal function in addition to electrolyte replacement including potassium and chloride. Acetazolamide could be considered 250 mg every 12 hour 3 do I favored continued use of IV methylprednisolone 40 mg 3 times a day in this setting no need for both IV and enteral steroids Continue bronchodilator therapy and a metered-dose inhalers been administered ( Symbicort twice a day) She has a large right-sided pleural effusion which may be amenable to thoracentesis for improvement respiratory mechanics and work of breathing however patient remains anticoagulated on heparin this would have to be held this is not urgent procedure to be done and I have discussed with cardiology service timing of this procedure they may defer until after heart catheterization. Regardless this should also improve with continued diuresis Continue positive airway pressure support at night I would adjust IPAP/EPAP ratio for improvment in ventilation (to be discussed with RT) and continue supplemental oxygen to keep saturations greater than 88-92% Her right groin pain appears to be mostly from dependent edema. I do not see evidence of Fourier's gangrene although cellulitis is not excluded. I d/w RN my findings and plan to alert Hospitalist service for evaluation/imaging as warranted. We will continue to follow Qualifiers: Qualified Code(s): J96.21 - Acute and chronic respiratory failure with hypoxia; J96.22 - Acute and chronic respiratory failure with hypercapnia (2) COPD with acute exacerbation Current Visit: Yes Status: Acute (3) DVT prophylaxis Current Visit: Yes Status: Acute (4) NSTEMI (non-ST elevated myocardial infarction) Current Visit: Yes Status: Acute (5) Pleural effusion Current Visit: Yes Status: Acute (6) HTN (hypertension) Current Visit: Yes Status: Chronic Qualifiers: Qualified Code(s): I10 - Essential (primary) hypertension (7) Smoker Current Visit: Yes Status: Chronic (8) Acute exacerbation of chronic obstructive airways disease Current Visit: No Status: Acute Subjective Principal diagnosis: NSTEMI, CHF Interval history: 4 BiPAP all night patient says the breathing is "" okay" she denies any cough she is complaining of right groin pain that has worsened overnight. She was laying flat with PAP pressure-support when I interviewed her in no distress Objective PUL Vital signs: Last Vital Signs Temp 97.9 F 12/26/16 07:00 Pulse 77 12/26/16 07:00 Resp 20 12/26/16 07:00 BP 127/63 12/26/16 07:00 Pulse Ox 98 12/26/16 07:00 General appearance: no acute distress Effort: mildly labored Auscultation: bilateral: diminished breath sounds, wheezes Cardiovascular: regular rate and rhythm Gastrointestinal: normoactive bowel sounds Integumentary: erythema (right groin examined there is diffuse erythema and the area is warm to touch although this is not much different from the left side appears that there is dependent edema/anasarca present did not have any palpable masses and there is no evidence of cellulitis or crepitus) normal mental status, non-focal exam Results - Laboratory Findings CBC and BMP: 12/26/16 04:30 12/26/16 04:30 ABG ABG pH 7.37 pH Units (7.32-7.45) 12/26/16 07:49 ABG pCO2 79 mmHg (35-45) H* 12/26/16 07:49 ABG pO2 60 mmHg (85-104) L 12/26/16 07:49 ABG O2 Saturation 90 % (95-98) L 12/26/16 07:49 PT/INR, D-dimer PT 11.4 Seconds (9.4-12.1) 12/24/16 13:16 Abnormal lab findings: Abnormal lab results MCH 26.5 pg (28.0-33.3) L 12/26/16 04:30 MCHC 29.4 g/dL (31.6-35.5) L 12/26/16 04:30 RDW 15.9 % (11.5-14.5) H 12/26/16 04:30 Plt Count 93 K/mcL (140-400) L 12/26/16 04:30 Immature Plt Fraction 7.5 % (1.1-6.1) H 12/26/16 04:30 APTT 158.5 Seconds (26.0-36.0) H* D 12/26/16 04:30 Heparin Anti-Xa, Unfract 0.99 IU/mL (0.30-0.70) H 12/26/16 04:30 ABG pCO2 79 mmHg (35-45) H* 12/26/16 07:49 ABG pO2 60 mmHg (85-104) L 12/26/16 07:49 ABG HCO3 45.7 mEQ/L (21-27) H 12/26/16 07:49 ABG Total CO2 48.1 mEq/L (20-26) H 12/26/16 07:49 ABG O2 Saturation 90 % (95-98) L 12/26/16 07:49 ABG Base Excess 16.5 mEq/L (-2.0 to 3.0) H 12/26/16 07:49 Chloride 94 mEq/L (98-109) L 12/26/16 04:30 Carbon Dioxide 42 mEq/L (19-29) H* 12/26/16 04:30 BUN 24 mg/dL (7-20) H 12/26/16 04:30 BUN/Creatinine Ratio 29 (6-26) H 12/26/16 04:30 Glucose 251 mg/dL (70-99) H 12/26/16 04:30 POC Glucose 215 (58-89) H 12/25/16 19:35 Hemoglobin A1c 7.7 % (-5.6) H 12/25/16 03:59 Calculated Osmolality 305 (280-300) H 12/26/16 04:30 Calcium 7.5 mg/dL (8.6-10.8) L 12/26/16 04:30 Troponin I 0.10 ng/mL (0-0.03) H* 12/24/16 08:08 B-Natriuretic Peptide 2539 pg/mL (0-100) H 12/24/16 03:10 Albumin 2.7 g/dL (3.5-5.0) L 12/24/16 03:10 Albumin/Globulin Ratio 0.8 (1.1-2.2) L 12/24/16 03:10 HDL Cholesterol 34 mg/dL (40-59) L 12/24/16 03:10 Urine Clarity Turbid (Clear) A 12/25/16 09:30 Urine Protein 30 mg/dL (Neg-Trace) H 12/25/16 09:30 Urine Blood Large (Negative) H 12/25/16 09:30 Urine Bilirubin Small (Negative) H 12/25/16 09:30 Ur Leukocyte Esterase Small (Negative) H 12/25/16 09:30 Urine Microscopic RBC 30-50 per hpf (0-3) H 12/25/16 09:30 Urine Microscopic WBC 5-15 per hpf (0-3) H 12/25/16 09:30 Ur Squamous Epith Cells Many per lpf (None-Few) H 12/25/16 09:30 - Clinical Findings Intake & Output: Intake & Output 12/25/16 12/26/16 12/26/16 23:59 07:59 15:59 Intake Total 240 / 240 500 / 500 Output Total 3150 / 3150 Balance -2910 / -2910 500 / 500 Weight 99.3 kg Consult Discharge Plan - Plan Referrals: Demond Venegas, DATA WAREHOUSING SPECIALIST [Advanced Practice Nurse] - 01/01/17 2:15 pm NO,PCP [Primary Care Provider] -
--- NOTE | 2016-12-26 09:16 | Internal Med Progress Note ---
Date of Encounter: 12/26/16 Time of Encounter: 09:12 - Assessment and plan (1) Acute exacerbation of chronic obstructive airways disease Current Visit: No Status: Acute Assessment and plan: With associated hypoxia, and worsening hypercapnia. Associated worsening of metabolic alkalosis. Patient at baseline is a chronic retainer. Metabolic alkalosis could have been worsened by use of Lasix for CHF management. Continue BiPAP for most of today, and throughout the night. Continue intravenous steroids, continue nebs every 4 hours. (2) Congestive heart failure Current Visit: Yes Status: Acute Assessment and plan: Patient has elevated BNP, with pleural effusion, leg swelling. TTE shows EF 40%, moderately dilated right atrium. Mildly dilated RV with normal function. Mild AR, mild TR. Moderate pulmonary hypertension. Cumulative I/O -5L 4 kg weight loss since admission Continue diuresis, we will decrease Lasix to once daily due to worsening metabolic alkalosis. Continue BB, ACEI Monitor renal function Evidence of suspected ischemia on ECHO For [facility] when stable Qualifiers: Congestive heart failure type: unspecified congestive heart failure type Congestive heart failure chronicity: unspecified congestive heart failure chronicity Qualified Code(s): I50.9 - Heart failure, unspecified (3) HTN (hypertension) Current Visit: Yes Status: Chronic Assessment and plan: BP is stable, continue current medications Qualifiers: Hypertension type: essential hypertension Qualified Code(s): I10 - Essential (primary) hypertension (4) UTI (urinary tract infection) Current Visit: Yes Status: Acute Assessment and plan: Urine culture from 11/26 not able to interpret Continue IV Rocephin-day 4. Qualifiers: Urinary tract infection type: acute cystitis Hematuria presence: without hematuria Qualified Code(s): N30.00 - Acute cystitis without hematuria (5) Diabetes Current Visit: Yes Status: Chronic Assessment and plan: A1C 7.7 Continue sliding scale ADA diet FS ACHS Qualifiers: Diabetes mellitus type: type 2 Diabetes mellitus complication status: with unspecified complications Diabetes mellitus intermodal customer service insulin use: unspecified nursing home insulin use status Qualified Code(s): E11.8 - Type 2 diabetes mellitus with unspecified complications (6) Smoker Current Visit: Yes Status: Chronic Assessment and plan: Tobacco cessation counselling done for 3 minutes (7) Acute and chronic respiratory failure Current Visit: Yes Status: Acute Assessment and plan: Due to COPD and CHF exacerbation. ABG reviewed, patient has a CO2 retention, pH is not acidosis, possibly chronic CO2 retention ABG today , not significantly changed from ABG on admission Continue BiPAP Continue management of underlying COPD and CHF. IPAp 16/EPAP 6, FiO2 40% Pulmonary eval appreciated Will add acetazolamide Qualifiers: Respiratory failure complication: hypoxia and hypercapnia Qualified Code(s) : J96.21 - Acute and chronic respiratory failure with hypoxia; J96.22 - Acute and chronic respiratory failure with hypercapnia (8) Pleural effusion Current Visit: Yes Status: Acute Assessment and plan: Most likely due to CHF. (9) Elevated troponin Current Visit: Yes Status: Acute Assessment and plan: As in CHF (10) DVT prophylaxis Current Visit: Yes Status: Acute Assessment and plan: On heparin drip (11) Ecchymosis Current Visit: Yes Status: Acute Assessment and plan: Left forearm Possibly secondary to IV access with heparin drip Hemoglobin is stable Continue to monitor - Subjective Interval history: Seen and evaluated at bedside 71 Y/O F being managed for acute on chronic respiratory failure , COPDE, Acute on chronic CHF, UTI She has a PMH of Obesity, DM, HTN, Tobacco abuse This morning the patient's blood work reveals worsening metabolic alkalosis, and ABG shows hypercapnia, compensated Chew was placed on BiPAP, she reports also using the BiPAP overnight. She is seen at the site complains of redness of her left upper extremity. - Constitutional Vitals: Temp Pulse Resp BP Pulse Ox 97.9 F 77 20 127/63 98 12/26/16 07:00 12/26/16 07:00 12/26/16 07:00 12/26/16 07:00 12/26/16 07:00 VSS, O2 sat 92-96% on 40% FiO2 on BIAPAP Gen: Not in any form of distress, speaks full sentences, Neuro: AAOX3, moves all limbs spontaneously, no focal deficits, no speech abnormality or facial asymmetry HEENT: Moist mucosa, no cyanosis, AMAN Chest: Clear to auscultation bilaterally, no wheezes, no rhonchi, no stridor. Heart: S1, S2, no m/g/r Abdomen: Soft, not tender, no palpably enlarged organs Extremities: Bilateral 2+ pitting pedal edema, pulses present and equal bilaterally Left extremity with diffuse ecchymosis and possible hematoma around the antecubital fossa possibly from afebrile intravenous access site. Associated tenderness. Distally the left arm is neurovascularly intact. Right groin with no visible abscesses or swelling, both lower extremities are edematous, no differential warmth General appearance: Present: mild distress, A&O X 3, answers questions appropriately Internal Medicine: Result - Labs CBC & Chem 7: 12/26/16 04:30 12/26/16 04:30 Labs: Short CBC 12/26/16 Range/Units 04:30 WBC 5.8 (4.3-11.1) K/mcL Hgb 11.6 D (11.5-15.4) g/dL Hct 39.5 (35.3-44.9) % Plt Count 93 L (140-400) K/mcL Neutrophils # 4.5 (1.6-8.9) K/mcL BMP 12/26/16 04:30 Sodium 141 Potassium 4.1 Chloride 94 L Carbon Dioxide 42 H* BUN 24 H Creatinine 0.83 Glucose 251 H Calcium 7.5 L Urine 12/25/16 Range/Units 09:30 Urine Color Dark Yellow (Yellow) Urine Clarity Turbid A (Clear) Urine pH 5.5 (5.0-8.0) pH Units Ur Specific [place] 1.021 (1.010-1.025) Urine Protein 30 H (Neg-Trace) mg/dL Urine Glucose (UA) Normal (Normal) mg/dL - ABG Interpretation ABG results: ABG ABG pH 7.37 pH Units (7.32-7.45) 12/26/16 07:49 ABG pCO2 79 mmHg (35-45) H* 12/26/16 07:49 ABG pO2 60 mmHg (85-104) L 12/26/16 07:49 ABG O2 Saturation 90 % (95-98) L 12/26/16 07:49 PT/INR, D-dimer PT 11.4 Seconds (9.4-12.1) 12/24/16 13:16 - Impressions Impressions Chest X-Ray 12/25/16 11:01 IMPRESSION: Moderate size right basilar pleural effusion. Bibasilar airspace disease, possibly pulmonary edema. Bilateral pneumonia is a differential concern. D/ / Jeet Robertson MD / Jeet Robertson MD Interpreting Provider: Jeet Robertson MD Consult Discharge Plan - Plan Referrals: Demond Venegas, DOCUMENT COORDINATOR [Advanced Practice Nurse] - 01/01/17 2:15 pm NO,PCP [Primary Care Provider] -
[2016-12-26] MEDS: predniSONE 20 MG TABLET PO SCH (09:26)
[2016-12-26] MEDS: Aspirin 81 MG TAB.CHEW PO SCH (09:26)
[2016-12-26] MEDS: Insulin LISPRO 300 UNITS/3 ML VIAL SQ SCH ×4 (09:29→20:49)
[2016-12-26] MEDS ORDERED: Acetaminophen 325 MG TABLET PO PRN (10:13)
[2016-12-26] MEDS: *HR* OxyCODONE/APAP 5/325 TABLET PO PRN (11:56)
[2016-12-26] MEDS: *HR* Heparin 5,000 UNIT/ML VIAL SQ SCH (16:57)
[2016-12-27] MEDS: Ipratropium/Albuterol Neb 3 ML IH SCH ×6 (04:41→23:45)
[2016-12-27 05:01] LABS: Eosinophils % 0.2 %
[2016-12-27 05:03] LABS: Hematocrit 39.4 % (35.3-44.9); Hemoglobin 11.9 g/dL (11.5-15.4); Immature Granulocytes % 0.3 % (0-4); Immature Platelets 7.4 % (1.1-6.1); Lymphocytes # 1.2 K/mcL (0.6-4.6); Lymphocytes % 19.8 %; Mean Corpuscular HGB Conc 30.2 g/dL (31.6-35.5); Mean Corpuscular Hemoglobin 27.1 pg (28.0-33.3); Mean Corpuscular Volume 89.7 fL (83.0-100.0); Mean Platelet Volume 11.1 fL (9.4-12.4); Monocytes # 0.7 K/mcL (0.0-1.3); Monocytes % 10.6 %; Neutrophils # 4.2 K/mcL (1.6-8.9); Platelet Count 88 K/mcL (140-400); Red Blood Count 4.39 M/mcL (3.82-4.97); Red Cell Distribution Width 15.8 % (11.5-14.5); Segmented Neutrophils % 69.1 %
[2016-12-27 05:24] LABS: BUN/Creatinine Ratio 29 (6-26); Blood Urea Nitrogen 24 mg/dL (7-20); Calcium 7.8 mg/dL (8.6-10.8); Chloride 95 mEq/L (98-109); Glucose 164 mg/dL (70-99); Osmolality,Calculated 302 (280-300); Potassium 4.1 mEq/L (3.5-4.5); Sodium 142 mEq/L (136-145); eGFR For African Americans > 60 (> 60); eGFR For Non-African Americans > 60 (> 60)
[2016-12-27 05:29] LABS: Carbon Dioxide 41 mEq/L (19-29)
[2016-12-27] MEDS: *HR* Heparin 5,000 UNIT/ML VIAL SQ SCH ×2 (06:29→16:42)
[2016-12-27] MEDS: Insulin LISPRO 300 UNITS/3 ML VIAL SQ SCH ×4 (07:57→21:36)
[2016-12-27] MEDS: Aspirin 81 MG TAB.CHEW PO SCH (08:25)
[2016-12-27] MEDS: predniSONE 20 MG TABLET PO SCH (08:25)
[2016-12-27] MEDS: Furosemide 40 MG/4 ML VIAL IVP SCH (08:28)
--- NOTE | 2016-12-27 10:38 | Internal Med Progress Note ---
Date of Encounter: 12/27/16 Time of Encounter: 10:37 - Assessment and plan (1) Acute exacerbation of chronic obstructive airways disease Current Visit: No Status: Acute Assessment and plan: With associated hypoxia, and worsening hypercapnia. Associated worsening of metabolic alkalosis. Patient at baseline is a chronic retainer. Metabolic alkalosis could have been worsened by use of Lasix for CHF management. Continue BiPAP for most of today, and throughout the night. Continue prednsione po, duonebs (2) Congestive heart failure Current Visit: Yes Status: Acute Assessment and plan: Patient has elevated BNP, with pleural effusion, leg swelling. TTE shows EF 40%, moderately dilated right atrium. Mildly dilated RV with normal function. Mild AR, mild TR. Moderate pulmonary hypertension. Cumulative I/O -9L 5 kg weight loss since admission Continue diuresis, Continue BB, ACEI Monitor renal function Evidence of suspected ischemia on ECHO For [facility] per cardiology Qualifiers: Congestive heart failure type: unspecified congestive heart failure type Congestive heart failure chronicity: unspecified congestive heart failure chronicity Qualified Code(s): I50.9 - Heart failure, unspecified (3) HTN (hypertension) Current Visit: Yes Status: Chronic Assessment and plan: BP is stable, continue current medications Qualifiers: Hypertension type: essential hypertension Qualified Code(s): I10 - Essential (primary) hypertension (4) UTI (urinary tract infection) Current Visit: Yes Status: Acute Assessment and plan: Urine culture from 11/26 not able to interpret Continue IV Rocephin-day 5 Qualifiers: Urinary tract infection type: acute cystitis Hematuria presence: without hematuria Qualified Code(s): N30.00 - Acute cystitis without hematuria (5) Diabetes Current Visit: Yes Status: Chronic Qualifiers: Diabetes mellitus type: type 2 Diabetes mellitus complication status: with unspecified complications Diabetes mellitus alf insulin use: unspecified terminologist insulin use status Qualified Code(s): E11.8 - Type 2 diabetes mellitus with unspecified complications (6) Smoker Current Visit: Yes Status: Chronic Assessment and plan: Tobacco cessation counselling done for 3 minutes (7) Acute and chronic respiratory failure Current Visit: Yes Status: Acute Assessment and plan: Due to COPD and CHF exacerbation. ABG not repeated, patient is clinically stable Continue management of underlying COPD and CHF. IPAp 16/EPAP 6, FiO2 40% Continue current management Qualifiers: Respiratory failure complication: hypoxia and hypercapnia Qualified Code(s) : J96.21 - Acute and chronic respiratory failure with hypoxia; J96.22 - Acute and chronic respiratory failure with hypercapnia (8) Pleural effusion Current Visit: Yes Status: Acute Assessment and plan: Most likely due to CHF. (9) Elevated troponin Current Visit: Yes Status: Acute Assessment and plan: As in CHF (10) DVT prophylaxis Current Visit: Yes Status: Acute Assessment and plan: Heparin drip d/tu on DVT heprain dose (11) Ecchymosis Current Visit: Yes Status: Acute Assessment and plan: Left forearm Possibly secondary to IV access with heparin drip Hemoglobin is stable Continue to monitor - Subjective Interval history: Seen and evaluated at bedside 71 Y/O F being managed for acute on chronic respiratory failure , COPDE, Acute on chronic CHF, UTI She has a PMH of Obesity, DM, HTN, Tobacco abuse Denies new complains Vitals are stable I/O cumulative -9L. Weight loss from 103kg to 98kg Metabolic alkalosis persists BUN slowly uptrending, cr and GFR stable - Constitutional Vitals: Temp Pulse Resp BP Pulse Ox 98.0 F 64 15 130/62 96 12/27/16 07:28 12/27/16 08:00 12/27/16 08:04 12/27/16 07:28 12/27/16 08:04 VSS, O2 sat 92-96% on 40% FiO2 on BIAPAP Gen: Not in any form of distress, speaks full sentences, Neuro: AAOX3, moves all limbs spontaneously, no focal deficits, no speech abnormality or facial asymmetry HEENT: Moist mucosa, no cyanosis, AMAN Chest: Clear to auscultation bilaterally, no wheezes, no rhonchi, no stridor. Heart: S1, S2, no m/g/r Abdomen: Soft, not tender, no palpably enlarged organs Extremities: Bilateral 2+ pitting pedal edema, pulses present and equal bilaterally Left extremity with diffuse ecchymosis , improving, in the antecubital fossa possibly from previous intravenous access site. No tenderness. Distally the left arm is neurovascularly intact. Right groin with no visible abscesses or swelling, both lower extremities are edematous, no differential warmth General appearance: Present: mild distress, A&O X 3, answers questions appropriately Internal Medicine: Result - Labs CBC & Chem 7: 05/04/17 04:30 12/27/16 04:30 Labs: Short CBC 12/27/16 Range/Units 04:30 WBC 6.1 (4.3-11.1) K/mcL Hgb 11.9 (11.5-15.4) g/dL Hct 39.4 (35.3-44.9) % Plt Count 88 L (140-400) K/mcL Neutrophils # 4.2 (1.6-8.9) K/mcL BMP 12/27/16 04:30 Sodium 142 Potassium 4.1 Chloride 95 L Carbon Dioxide 41 H* BUN 24 H Creatinine 0.84 Glucose 164 H Calcium 7.8 L - ABG Interpretation ABG results: ABG ABG pH 7.37 pH Units (7.32-7.45) 12/26/16 07:49 ABG pCO2 79 mmHg (35-45) H* 12/26/16 07:49 ABG pO2 60 mmHg (85-104) L 12/26/16 07:49 ABG O2 Saturation 90 % (95-98) L 12/26/16 07:49 PT/INR, D-dimer PT 11.4 Seconds (9.4-12.1) 12/24/16 13:16 Consult Discharge Plan - Plan Referrals: Demond Venegas, VULNERABILITY RESEARCHER [Advanced Practice Nurse] - 01/01/17 2:15 pm NO,PCP [Primary Care Provider] -
--- NOTE | 2016-12-27 10:55 | Event Note ---
Date of Encounter: 12/27/16 Time of Encounter: 10:46 - Cardiology Event Note Patient continues to be on 5L NC. No distress noted. Denies SOB. Diuresing well. Layed flat for 30 min to assess if she is ready for LHC. Spo2 decreased to 81% after 30 min. Pt was sleeping and did not have any distress. Discussed indication, risk, benefits, and alternatives of LHC to r/o ischemic cause of cardiomyopathy. She is agreeable. Discussed with interventionalist, will use bipap if needed.
--- NOTE | 2016-12-27 13:13 | Pulmonology Progress Note ---
Date of Encounter: 12/27/16 Time of Encounter: 13:07 Assessment and Plan (1) Acute and chronic respiratory failure Current Visit: Yes Status: Acute Impression #1 Acute on Chronic Hypoxic Hypercarbic Respiratory Failure #2 Decompensated HFrEF #3. 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 Pulmonary HTN #6. Metabolic Alkalosis Plan: Continue bilevel positive airway pressure support especially at night and for hypoxia/discomfort during the day wean O2 bleed to keep saturation around 89-90% Continue diuresis goal 2-3 L again today which check renal function panel twice a day to evaluate for YOGESH replace LYTES per electrolyte protocol; she is on appropriate blood pressure control and afterload reduction per cardiology Continue enteral steroids with taper over 2 weeks continue; continue short acting bronchodilators as needed every 2-4 hours Symbicort tobacco cessation encouraged Positive airway pressure support at night Continue Diamox for 3 doses Remains on BiPAP would defer thoracentesis until more comfortable off BiPAP; additionally patient continues to make progress with diuresis Qualifiers: Respiratory failure complication: hypoxia and hypercapnia Qualified Code(s) : J96.21 - Acute and chronic respiratory failure with hypoxia; J96.22 - Acute and chronic respiratory failure with hypercapnia (2) COPD with acute exacerbation Current Visit: Yes Status: Acute (3) DVT prophylaxis Current Visit: Yes Status: Acute (4) NSTEMI (non-ST elevated myocardial infarction) Current Visit: Yes Status: Acute (5) Pleural effusion Current Visit: Yes Status: Acute (6) HTN (hypertension) Current Visit: Yes Status: Chronic Qualifiers: Hypertension type: essential hypertension Qualified Code(s): I10 - Essential (primary) hypertension (7) Smoker Current Visit: Yes Status: Chronic (8) Acute exacerbation of chronic obstructive airways disease Current Visit: No Status: Acute Subjective Principal diagnosis: NSTEMI, CHF Interval history: Patient has done well overnight she continues to need BiPAP intermittently she has had a brisk diuresis. She says that she feels "center" and now can lift her backside off the bed where before she could not plan for left heart catheterization today Objective PUL Vital signs: Last Vital Signs Temp 97.9 F 12/27/16 11:26 Pulse 66 12/27/16 11:26 Resp 18 12/27/16 11:26 BP 140/68 12/27/16 11:26 Pulse Ox 94 12/27/16 11:26 General appearance: no acute distress Auscultation: bilateral: diminished breath sounds (Much less prominent wheezing) , rales Cardiovascular: regular rate and rhythm Gastrointestinal: normoactive bowel sounds Extremities: no edema, anasarca Results - Laboratory Findings CBC and BMP: 12/27/16 04:30 12/27/16 04:30 ABG ABG pH 7.37 pH Units (7.32-7.45) 12/26/16 07:49 ABG pCO2 79 mmHg (35-45) H* 12/26/16 07:49 ABG pO2 60 mmHg (85-104) L 12/26/16 07:49 ABG O2 Saturation 90 % (95-98) L 12/26/16 07:49 PT/INR, D-dimer PT 11.4 Seconds (9.4-12.1) 12/24/16 13:16 Abnormal lab findings: Abnormal lab results MCH 27.1 pg (28.0-33.3) L 12/27/16 04:30 MCHC 30.2 g/dL (31.6-35.5) L 12/27/16 04:30 RDW 15.8 % (11.5-14.5) H 12/27/16 04:30 Plt Count 88 K/mcL (140-400) L 12/27/16 04:30 Immature Plt Fraction 7.4 % (1.1-6.1) H 12/27/16 04:30 APTT 38.7 Seconds (26.0-36.0) H D 12/26/16 12:04 Heparin Anti-Xa, Unfract 0.99 IU/mL (0.30-0.70) H 12/26/16 04:30 ABG pCO2 79 mmHg (35-45) H* 12/26/16 07:49 ABG pO2 60 mmHg (85-104) L 12/26/16 07:49 ABG HCO3 45.7 mEQ/L (21-27) H 12/26/16 07:49 ABG Total CO2 48.1 mEq/L (20-26) H 12/26/16 07:49 ABG O2 Saturation 90 % (95-98) L 12/26/16 07:49 ABG Base Excess 16.5 mEq/L (-2.0 to 3.0) H 12/26/16 07:49 Chloride 95 mEq/L (98-109) L 12/27/16 04:30 Carbon Dioxide 41 mEq/L (19-29) H* 12/27/16 04:30 BUN 24 mg/dL (7-20) H 12/27/16 04:30 BUN/Creatinine Ratio 29 (6-26) H 12/27/16 04:30 Glucose 164 mg/dL (70-99) H 12/27/16 04:30 POC Glucose 199 (58-89) H 12/26/16 20:48 Hemoglobin A1c 7.7 % (-5.6) H 12/25/16 03:59 Calculated Osmolality 302 (280-300) H 12/27/16 04:30 Calcium 7.8 mg/dL (8.6-10.8) L 12/27/16 04:30 Troponin I 0.10 ng/mL (0-0.03) H* 12/24/16 08:08 B-Natriuretic Peptide 1886 pg/mL (0-100) H 12/27/16 10:24 Albumin 2.7 g/dL (3.5-5.0) L 12/24/16 03:10 Albumin/Globulin Ratio 0.8 (1.1-2.2) L 12/24/16 03:10 HDL Cholesterol 34 mg/dL (40-59) L 12/24/16 03:10 Urine Clarity Turbid (Clear) A 12/25/16 09:30 Urine Protein 30 mg/dL (Neg-Trace) H 12/25/16 09:30 Urine Blood Large (Negative) H 12/25/16 09:30 Urine Bilirubin Small (Negative) H 12/25/16 09:30 Ur Leukocyte Esterase Small (Negative) H 12/25/16 09:30 Urine Microscopic RBC 30-50 per hpf (0-3) H 12/25/16 09:30 Urine Microscopic WBC 5-15 per hpf (0-3) H 12/25/16 09:30 Ur Squamous Epith Cells Many per lpf (None-Few) H 12/25/16 09:30 - Clinical Findings Intake & Output: Intake & Output 12/26/16 12/27/16 12/27/16 23:59 07:59 15:59 Intake Total 240 / 240 0 / 0 120 / 120 Output Total 1125 / 1125 650 / 650 4350 / 4350 Balance -885 / -885 -650 / -650 -4230 / -4230 Weight 98.2 kg Consult Discharge Plan - Plan Referrals: Demond Venegas, ENERGY RISK MANAGEMENT ANALYST [Advanced Practice Nurse] - 01/01/17 2:15 pm NO,PCP [Primary Care Provider] -
[2016-12-27] MEDS ORDERED: Nitroglycerin 1,000 MCG/10 ML VIAL IV ONE (14:51)
[2016-12-27] MEDS ORDERED: *HR* Heparin 10,000 UNIT/10 ML VIAL ONE (14:51)
[2016-12-27] MEDS ORDERED: 0.9 % Sodium Chloride 1,000 ML ONE ×2 (14:51→15:03)
[2016-12-27] MEDS ORDERED: Heparin 1,000 UNITS/500 mL NS 500 ML ONE (14:51)
[2016-12-27] MEDS ORDERED: Verapamil 5 MG/2 ML VIAL ONE (14:51)
[2016-12-27] MEDS ORDERED: *HR* FentaNYL (PF) 100 MCG/2 ML VIAL ONE (15:12)
[2016-12-27] MEDS ORDERED: *HR* Midazolam HCl 2 MG/2 ML VIAL ONE (15:12)
--- NOTE | 2016-12-27 15:25 | Pre-Sedation Evaluation ---
Pre-sedation evaluation - Pre-sedation checklist Date of procedure: 12/27/16 Procedure: heart cath Recent Vitals: Last Vital Signs Temp 97.9 F 12/27/16 11:26 Pulse 66 12/27/16 13:35 Resp 18 12/27/16 11:26 BP 140/68 12/27/16 11:26 Pulse Ox 94 12/27/16 11:26 H&P (including ROS) documented in medical record: Yes Previous reaction to sedatives/anesthetics: No ASA Classification *see protocol: CLASS II-Mild systemic disease Plan of Care: Pt appropriate candidate for procedure/moderate/conscious sedation , Risks/benefits of procedure/sedation discussed w/ patient/family
--- NOTE | 2016-12-27 15:58 | Invasive Diagnostic Lab Proc ---
Name: Nata Fontanez Date of Study: 12/27/2016 Date: 1945 Ht: 61.0in Medical Record#: [id number] Age: 71 Wt: 216.49lb Gender: Female BSA: 1.95 Order #: [id number] BMI: 40.93 Physicians Procedure Physician: Amandeep Oconnor MD, [facility] Referring MD: Referring MD: Staff Name Position Time In [facility], [facility] RT (R) Monitor 03:05 PM Darlin Gonzalez RN Singing Waiter Or Waitress 03:05 PM Stephenie Whittaker RN Nurse 03:05 PM Kiko Jaime RN Scrub 03:05 PM Indications Indication Non-Stemi Procedures Performed Procedure L HRT ARTERY/VENTRICLE ANGIO Pre-Procedure Checklist Informed consent is complete signed and on chart. H\\T\\P is on chart. ID band is on and ID verified with patient. Patient NPO for procedure The procedure was described for the patient and questions were answered. ECG is on chart. Plan of Care Patient will tolerate the procedure without complications. Adequate level of comfort will be maintained. Hemodynamics will remain stable Patient will recover from procedure without complications. Respiratory function will be maintained. Cardiac rhythm will remain stable. Patient temperature will be maintained. Patient and/or family have verbalized understanding of the procedure. Patient Education Chief Complaint/Reason for Test: Cardiac Cath Developmental Category: Geriatric (65+ years) Developmentally Appropriate for Age: Yes Learning Barriers: None Education Needs: Procedure Education Method: Verbal Information Taught: Cardiac Cath Educational Evaluation: Able to repeat information Intravenous Access Time IV Size Location DC'd Fluid/Drip Rate Units RN 03:03 PM 18g 1 08/29" Patent On Arrival Rt Arm 0.9NaCl 25 Allergies No Known Allergies Vital Signs Time BP (mmHg) HR (bpm) O2 Sat. RR (bpm) LOC 03:03 PM / % 03:27 PM / % 5 = Fully awake and oriented or at pre-proc level 03:36 PM 141 / 63 67 91 % 22 03:41 PM 138 / 66 76 91 % 22 03:46 PM 143 / 66 69 % 47 03:11 PM 145 / 77 72 91 % 03:16 PM 154 / 76 70 93 % 03:21 PM 147 / 77 70 93 % 19 03:26 PM 150 / 70 71 94 % 21 03:31 PM 147 / 74 67 93 % 19 Procedural Medications Time Medication Dose Units Method Given By 03:05 PM Oxygen 15 L/min oxymask Kiko Jaime RN 03:27 PM Versed 1 mg Intravenous Darlin Gonzalez RN 03:27 PM Fentanyl 25 mcg Intravenous Darlin Gonzalez RN 03:28 PM Lidocaine 2% 0.5 ml Subcutaneous Amandeep Oconnor MD, [facility] 03:32 PM Heparin 4000 units Nitroglycerin 200 mcg Verapamil 2.5 mg Intraarterial Amandeep Oconnor MD, [facility] ASA Classification: CLASS II- Mild systemic disease (i.e. well-controlled diabetes, hypertension, asthma, cigarette smoking) Mary Score Preprocedure Postprocedure Activity 2- Moves 4 extremities sustained head lift Activity 2- Moves 4 extremities sustained head lift Circulation 2- SBP +/= 20 points of pre-anesthetic level Circulation 2- SBP +/= 20 points of pre-anesthetic level Consciousness 2- Awake and alert oriented x 3 Consciousness 2- Awake and alert oriented x 3 O2 Saturation 2- Able to maintain O2 satruation of 92% on room air O2 Saturation 2- Able to maintain O2 satruation of 92% on room air Respiratory 2- Able to deep breathe and cough well Respiratory 2- Able to deep breathe and cough well Total Score 10 Total Score 10 Contrast Agent: Isovue Diagnostic Contrast: 64 ml Total Contrast: 64 ml Fluoro Dose: 205 mGy Procedure Log Time Note Enter By 03:03 PM CathStat 03:04 PM Pt arrived to labor relations consultant 2 at 15:04 [email or web address] 03:04 PM Patient charges- Angio tray pack, Navilyst 3mm J, Pulse Oximetry and ACIST tubing and transducer ejohnson 03:04 PM Physician arrived 15:04 [email or web address] 03:05 PM Robbie completed ejohnson 03:05 PM Sign in performed according to hospital policy. ejohnson 03:05 PM Procedure start 15:05 [email or web address] 03:05 PM Mariluz Lieberman RT (R) Position: Monitor Time in: 15:05 [email or web address] 03:05 PM Darlin Gonzalez RN Position: Singing Waiter Or Waitress Time in: 15:05 [email or web address] 03:05 PM Stephenie Whittaker RN Position: Nurse Time in: 15:05 [email or web address] 03:05 PM Kiko Jaime RN Position: Scrub Time in: 15:05 ejohnson 03:05 PM Time: 15:05 Oxygen on at 15 L/min per oxymask by Kiko Jaime RNohvicky 03:10 PM Vitals capture started with the following parameters, Patient=Adult, Interval=5 min, Initial Bdgrpxem=532 mmHg, Deflation Rate=5 mmHg, Cuff placed on Left Arm 03:11 PM HR=72 bpm, UNDY=430/77 mmhg, SpO2=91 % 03:15 PM Recorded ECG: HR=70 Condition=Condition 1 03:16 PM HR=70 bpm, SLJI=090/76 mmhg, SpO2=93.0 % 03:20 PM Case Delayed No tsites 03:21 PM HR=70 bpm, WVNU=694/77 mmhg, SpO2=93.0 %, Resp=19 B/min 03:22 PM Pressure channel 1 zero failed. 03:22 PM Pressure channel 1 zeroed. 03:24 PM Hair removed from procedure site in holding area using clippers. Right wrist and right groin prepped with Chloraprep by Dariln Gonzalez RN, safety strap applied then patient was draped. Skin intact. tsites 03:26 PM HR=71 bpm, BDAO=873/70 mmhg, SpO2=94 %, Resp=21 B/min 03:27 PM Time: 15:27 Versed 1 mg Intravenous Given by Darlin Gonzlaez RN tsites 03:27 PM Time: 15:27 Fentanyl 25 mcg Intravenous Given by Darlin Gonzalez RN tsites 03:27 PM Time: 15:27 Patient comfortable and pain free: Yes tsites 03:27 PM Time: 15:27LOC: 5 = Fully awake and oriented or at pre-proc level tsites 03:28 PM Time out performed according to hospital policy tsites 03:29 PM Time: 15:28 0.5 ml Lidocaine 2% to right radial Subcutaneous Given by Amandeep Oconnor MD, [facility] tsites 03:30 PM Unsuccessful access attempt # 1 into the right Radial artery. Manual pressure applied to achieve hemostasis.. tsites 03:31 PM HR=67 bpm, ESSJ=871/74 mmhg, SpO2=93 %, Resp=19 B/min 03:32 PM Access obtained by percutaneous puncture. 5Fr 10cm Terumo Glidesheath sheath placed in right Radial artery. [id number] tsites 03:32 PM Time: 15:32 Patient given 4,000 units Heparin, 200 mcg Nitroglycerin, and 2.5 mg Verapamil Intraarterial by Amandeep Oconnor MD, [facility] tsites 03:33 PM 0.035 260cm Navilyst 3mmJ wire [id number] tsites 03:33 PM 5Fr FL 4 catheter inserted over the wire DN tsites 03:33 PM Wire removed tsites 03:34 PM 0.035 150cm VSI Ugo-Torque wire [id number] tsites 03:35 PM Wire removed tsites 03:36 PM LCA angiography performed in multiple views. tsites 03:36 PM HR=67 bpm, RLRS=449/63 mmhg, SpO2=91 %, Resp=22 B/min 03:36 PM Recorded Pressure: Ao, HR=67, Condition=Condition 1 (Aorta) Ao 116/18/62 03:37 PM wire reinserted catheter removed tsites 03:38 PM 5Fr FR 4 catheter inserted over the wire [facility] tsites 03:39 PM Recorded Pressure: Ao, HR=75, Condition=Condition 1 (Aorta) Ao 104/62/82 03:40 PM Lesion found in Mid RCA. Pre Stenosis: 15 Pre EVA Flow: tsites 03:40 PM Right Coronary, Right Posterior Descending Arteries with Right Posterolateral and Acute Marginal branches with 15 % stenosis. If graft is supplying this area, 0 % stenosis tsites 03:40 PM wire reinserted catheter removed tsites 03:40 PM 5Fr Pigtail catheter inserted over the wire [facility] tsites 03:40 PM Catheter selectively placed in left ventricle tsites 03:41 PM HR=76 bpm, UNTM=227/66 mmhg, SpO2=91.0 %, Resp=22 B/min 03:41 PM Bolus angiogram of left Ventricle complete: 12 ml/sec for a total of 36 mls tsites 03:41 PM Recorded Pressure: LV, HR=70, Condition=Condition 1 (Left Ventricle) LV 125/-1/15 03:42 PM Recorded Pressure: LV, Ao, HR=69, Condition=Condition 1 (Left Ventricle) LV 124/4/14, (Aorta) Ao 123/47/77 03:42 PM Catheter removed tsites 03:42 PM Coronary Dominance: right tsites 03:43 PM Procedure completed at 15:43 tsites 03:43 PM Sign out completed: Radiation Dose 205 mGy Fluoro Time: 2.0 Isovue 370 - 500ml contrast 64 ml given by Amandeep Oconnor MD, [facility]. Complications: NoneCardiac Rehab Consult needed: NoConfirmed administered medications: No tsites 03:43 PM Isovue 370 - 500ml,1 Bottle(s) used. tsites 03:43 PM Arterial sheath pulled, Vasc Band closure device used and was Successful S/N. tsites 03:44 PM Post ECG NSR tsites 03:44 PM 13 ml air in Vasc Band. tsites 03:44 PM Post ECG NSR tsites 03:45 PM Post Blood Pressure 138/66 tsites 03:45 PM 15:45 Post Pulses Bilateral DP \\T\\ PT Doppler tsites 03:45 PM 15:45 Post Pulses Rt Radial 1+ tsites 03:46 PM Information taught Cardiac Cath and Vasc Band tsites 03:46 PM Education needs Procedure, Plan of Care, and Responsibilities of Patient in Care tsites 03:46 PM Learning barriers :None tsites 03:46 PM HR=69 bpm, BAGT=796/66 mmhg, Resp=47 B/min 03:46 PM Education Methods Verbal tsites 03:46 PM Education evaluation Able to repeat information tsites 03:46 PM Site status No bleeding/hematoma - Rt Wrist as reported by Kiko Jaime RN at 15:46 tsites 03:49 PM Report given to domenica CHILEL Pt taken to 2N Room #8. 15:49 tsites 03:49 PM Delay to floor No tsites 03:49 PM Patient out of room: 15:49 tsites 03:50 PM Family placed in consult room. tsites Complications Complication None Hemodynamics Pressures Site Systolic/A Wave Diastolic/V Wave Mean AO 116 18 62 AO 104 62 82 LV 125 -1 15 LV 124 4 14 AO 123 47 77 Post Procedure Information Blood Pressure: 138/66 mmHg Rhythm: NSR Post procedural instructions were given Closure Device Time Device Success/Fail 12/27/2016 3:48:00 PM Mechanical Compression Successful Site Checks Time Location Status Staff Sheath In? Note 03:46 PM Rt Wrist No bleeding/hematoma Kiko Jaime RN Pulses Time Site Pre-Procedure Post-Procedure Note 12/27/2016 3:03:00 PM Bilateral radial 2+ 12/27/2016 3:03:00 PM Bilateral DP \\T\\ PT Doppler 3:45:00 PM Bilateral DP \\T\\ PT Doppler 3:45:00 PM Rt Radial 1+ Updated by [facility], RT (R) on 12/27/2016 3:51:[address] [facility], RT electronically signed on 12/27/2016 3:53:15 PM with status of Final
--- NOTE | 2016-12-27 16:15 | Invasive Diagnostic Lab ---
Name: Nata Fontanez Date of Study: 12/27/2016 Date: 1945 Ht: 154.9 cm /61.0 in Medical Record#: [id number] Age: 71 Wt: 98.2 kg / 216.49 lb Account/Order#: [id number] Gender: Female BSA: 1.95 Order #: [id number] Fluoro Dose: 205 mGy BMI: 40.93 Procedure Physician: Amandeep Oconnor MD, FACC Referring MD: Referring MD: Procedures Performed: LEFT HEART CATH Indications: Non-Stemi Impressions: Mild coronary artery disease. There is mild-moderate LV Dysfunction EF 35-40% Mildly dilated LV. Recommendations: Optimal medical therapy of patient's disease. Aggressive risk factor modification. History/Risk Factors: Diabetes Current/Recent Smoker Chronic Lung Disease Procedure Access obtained in the right Radial artery by percutaneous puncture Complications: None Contrast: Isovue 64ml Closure Device: Mechanical Compression Hemodynamics: Pressures Site Systolic/ A Wave Diastolic/ V Wave End Diastolic/ Mean HR AO 116 18 62 67 AO 104 62 82 75 LV 125 -1 15 70 LV 124 4 14 69 AO 123 47 77 69 LV Ventriculography Ejection Method: LV Gram Ejection Fraction: 35-40% Wall Motion: NICOLAS Anterobasal Mild Hypokinesis Anterolateral Mild Hypokinesis Apical: Mild Hypokinesis Inferoapical Normal Inferobasal Normal Coronary Dominance: right Lesion Findings/Interventions * Left Main Coronary Artery The LMCA is angiographically free of disease. * Left Anterior Descending The LAD has luminal irregularities in the proximal and mid portion The 1st Diagonal is angiographically free of disease. * Circumflex The Circumflex has proximal 15% stenosis The 1st Marginal is angiographically free of disease. * Right Coronary Artery There is a 15% stenosis in the Mid RCA. Updated by Mariluz Sites, RT (R) on 12/27/2016 3:52:12 PM Amandeep Oconnor MD, FACC electronically signed on 12/27/2016 4:11:06 PM with status of Final
[2016-12-28] MEDS: Ipratropium/Albuterol Neb 3 ML IH SCH ×5 (04:04→20:57)
[2016-12-28 04:25] LABS: Eosinophils % 0.2 %; Hematocrit 39.4 % (35.3-44.9); Hemoglobin 11.8 g/dL (11.5-15.4); Immature Granulocytes % 0.8 % (0-4); Immature Platelets 7.7 % (1.1-6.1); Lymphocytes # 1.2 K/mcL (0.6-4.6); Lymphocytes % 23.1 %; Mean Corpuscular HGB Conc 29.9 g/dL (31.6-35.5); Mean Corpuscular Hemoglobin 27.4 pg (28.0-33.3); Mean Corpuscular Volume 91.4 fL (83.0-100.0); Mean Platelet Volume 11.2 fL (9.4-12.4); Monocytes # 0.5 K/mcL (0.0-1.3); Monocytes % 9.8 %; Neutrophils # 3.4 K/mcL (1.6-8.9); Platelet Count 86 K/mcL (140-400); Red Blood Count 4.31 M/mcL (3.82-4.97); Red Cell Distribution Width 15.7 % (11.5-14.5); Segmented Neutrophils % 66.1 %
[2016-12-28] MEDS: *HR* Heparin 5,000 UNIT/ML VIAL SQ SCH ×2 (04:34→17:06)
[2016-12-28 04:39] LABS: BUN/Creatinine Ratio 31 (6-26); Blood Urea Nitrogen 25 mg/dL (7-20); Calcium 7.8 mg/dL (8.6-10.8); Carbon Dioxide 39 mEq/L (19-29); Chloride 97 mEq/L (98-109); Glucose 136 mg/dL (70-99); Osmolality,Calculated 300 (280-300); Potassium 4.3 mEq/L (3.5-4.5); Sodium 142 mEq/L (136-145); eGFR For African Americans > 60 (> 60); eGFR For Non-African Americans > 60 (> 60)
--- NOTE | 2016-12-28 07:25 | Cardiology Progress Note ---
Date of Encounter: 12/28/16 Time of Encounter: 07:22 Assessment and Plan (1) Congestive heart failure Current Visit: Yes Status: Acute Acute systolic heart failure. TTE shows EF 40%, moderately dilated right atrium. Mildly dilated RV with normal function. Mild AR, mild TR. Moderate pulmonary hypertension. Rapidly diuresing on 40 mg IV lasix BID. Net negative -38126sr. 24 hour negative -6640ml. Kidney function remains normal. Continue bb and latasha-inhibitor as tolerated. LHC 12/27/16 shows mild CAD (15% stenosis pCX, and 15% stenosis mRCA). Risk factor modification. Continue aspirin. EF 35-40%. Non-ischemic cardiomyopathy. Strict I&O and daily weights. Recommend continuing IV diuretic until sCr increased above normal and then switch to oral lasix. Continue bb and latasha-inhibitor. CHF education reviewed. Cardiology will sign off. Call with questions. One week hospital f/u after discharge will be scheduled. Qualifiers: Congestive heart failure type: unspecified congestive heart failure type Congestive heart failure chronicity: unspecified congestive heart failure chronicity Qualified Code(s): I50.9 - Heart failure, unspecified (2) Elevated troponin Current Visit: Yes Status: Acute Troponin elevated 0.14, 0.12, 0.11 Likely due to demand ischemia secondary to acute CHF and COPD. LHC showed mild non-obstructive CAD. Cardiac rehab is not indicated. (3) Acute exacerbation of chronic obstructive airways disease Current Visit: No Status: Acute Acute on chronic exacerbation. Pulmonology now following. Discussion w patient/family: The assessment and plan as outlined above was discussed with the patient and/or family members who expressed understanding and agreement. All questions were answered. Thank you for involving us in the care of your patient. Please call with any questions. Subjective Principal diagnosis: NSTEMI, CHF Interval history: Now on 5 l NC this morning. C/o SOB while eating breakfast. Denies chest pain. Objective Vital Signs, Last 4 Hours Temp Pulse Resp BP Pulse Ox 12/28/16 04:26 98.0 F 63 16 132/61 98 12/28/16 04:04 17 98 12/28/16 03:40 66 Results 12/28/16 04:17 12/28/16 04:17 Lab Results 05/04/17 05/05/17 05/05/17 10:24 04:17 04:17 WBC 5.2 Hgb 11.8 Hct 39.4 Plt Count 86 L Sodium 142 Potassium 4.3 Chloride 97 L Carbon Dioxide 39 H BUN 25 H Creatinine 0.81 Glucose 136 H Calcium 7.8 L B-Natriuretic Peptide 1886 H Consult Discharge Plan - Plan Referrals: Demond Venegas, HERBICIDE SPRAYER [Advanced Practice Nurse] - 01/01/17 2:15 pm NO,PCP [Primary Care Provider] -
[2016-12-28] MEDS: Insulin LISPRO 300 UNITS/3 ML VIAL SQ SCH ×4 (07:45→20:30)
--- NOTE | 2016-12-28 08:20 | Pulmonology Progress Note ---
Date of Encounter: 12/28/16 Time of Encounter: 08:19 Assessment and Plan (1) Acute and chronic respiratory failure Current Visit: Yes Status: Acute Impression #1 Acute on Chronic Hypoxic Hypercarbic Respiratory Failure #2 Decompensated HFrEF #3. 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 Pulmonary HTN #6. Right Pleural Effusion Plan: Continue bilevel positive airway pressure support especially at night and for hypoxia/discomfort during the day wean O2 bleed to keep saturation around 89-90% Continue diuresis as tolerated by GFR. Can cont to use Diamox for HCO3 > 40 while actively diuresing if no change in renal function Chronic HFrEF mngt per Cardiology Continue enteral steroids with taper over 2 weeks continue; continue short acting bronchodilators as needed every 2-4 hours Symbicort tobacco cessation encouraged Positive airway pressure support at night Plan to evaluate for bedside thoracentesis later in day. Qualifiers: Respiratory failure complication: hypoxia and hypercapnia Qualified Code(s) : J96.21 - Acute and chronic respiratory failure with hypoxia; J96.22 - Acute and chronic respiratory failure with hypercapnia (2) COPD with acute exacerbation Current Visit: Yes Status: Acute (3) DVT prophylaxis Current Visit: Yes Status: Acute (4) NSTEMI (non-ST elevated myocardial infarction) Current Visit: Yes Status: Acute (5) Pleural effusion Current Visit: Yes Status: Acute (6) HTN (hypertension) Current Visit: Yes Status: Chronic Qualifiers: Hypertension type: essential hypertension Qualified Code(s): I10 - Essential (primary) hypertension (7) Smoker Current Visit: Yes Status: Chronic (8) Acute exacerbation of chronic obstructive airways disease Current Visit: No Status: Acute Subjective Principal diagnosis: NSTEMI, CHF Interval history: When I evaluated her she was sitting up in bed injuring her breakfast. Good oxygen saturation (greater than 95%) on 15 L high flow. She is able to speak in full sentences and eat at the same time. She reports gladly that she feels much better than when she arrived at the hospital She underwent left heart catheterization yesterday with no blockages amenable to percutaneous intervention medical management was recommended Objective PUL Vital signs: Last Vital Signs Temp 97.8 F 12/28/16 07:39 Pulse 64 12/28/16 07:39 Resp 16 12/28/16 07:46 BP 128/64 12/28/16 07:39 Pulse Ox 93 05/05/17 07:46 General appearance: no acute distress Effort: normal Auscultation: bilateral: diminished breath sounds (Right greater than left her wheezes have essentially are gone at this point) Results - Laboratory Findings CBC and BMP: 12/28/16 04:17 12/28/16 04:17 ABG ABG pH 7.37 pH Units (7.32-7.45) 12/26/16 07:49 ABG pCO2 79 mmHg (35-45) H* 12/26/16 07:49 ABG pO2 60 mmHg (85-104) L 12/26/16 07:49 ABG O2 Saturation 90 % (95-98) L 12/26/16 07:49 PT/INR, D-dimer PT 11.4 Seconds (9.4-12.1) 12/24/16 13:16 Abnormal lab findings: Abnormal lab results MCH 27.4 pg (28.0-33.3) L 12/28/16 04:17 MCHC 29.9 g/dL (31.6-35.5) L 12/28/16 04:17 RDW 15.7 % (11.5-14.5) H 12/28/16 04:17 Plt Count 86 K/mcL (140-400) L 12/28/16 04:17 Immature Plt Fraction 7.7 % (1.1-6.1) H 12/28/16 04:17 APTT 38.7 Seconds (26.0-36.0) H D 12/26/16 12:04 Heparin Anti-Xa, Unfract 0.99 IU/mL (0.30-0.70) H 12/26/16 04:30 ABG pCO2 79 mmHg (35-45) H* 12/26/16 07:49 ABG pO2 60 mmHg (85-104) L 12/26/16 07:49 ABG HCO3 45.7 mEQ/L (21-27) H 12/26/16 07:49 ABG Total CO2 48.1 mEq/L (20-26) H 12/26/16 07:49 ABG O2 Saturation 90 % (95-98) L 12/26/16 07:49 ABG Base Excess 16.5 mEq/L (-2.0 to 3.0) H 12/26/16 07:49 Chloride 97 mEq/L (98-109) L 12/28/16 04:17 Carbon Dioxide 39 mEq/L (19-29) H 12/28/16 04:17 BUN 25 mg/dL (7-20) H 12/28/16 04:17 BUN/Creatinine Ratio 31 (6-26) H 12/28/16 04:17 Glucose 136 mg/dL (70-99) H 12/28/16 04:17 POC Glucose 195 (58-89) H 12/27/16 21:35 Hemoglobin A1c 7.7 % (-5.6) H 12/25/16 03:59 Calcium 7.8 mg/dL (8.6-10.8) L 12/28/16 04:17 Troponin I 0.10 ng/mL (0-0.03) H* 12/24/16 08:08 B-Natriuretic Peptide 1886 pg/mL (0-100) H 12/27/16 10:24 Albumin 2.7 g/dL (3.5-5.0) L 12/24/16 03:10 Albumin/Globulin Ratio 0.8 (1.1-2.2) L 12/24/16 03:10 HDL Cholesterol 34 mg/dL (40-59) L 12/24/16 03:10 Urine Clarity Turbid (Clear) A 12/25/16 09:30 Urine Protein 30 mg/dL (Neg-Trace) H 12/25/16 09:30 Urine Blood Large (Negative) H 12/25/16 09:30 Urine Bilirubin Small (Negative) H 12/25/16 09:30 Ur Leukocyte Esterase Small (Negative) H 12/25/16 09:30 Urine Microscopic RBC 30-50 per hpf (0-3) H 12/25/16 09:30 Urine Microscopic WBC 5-15 per hpf (0-3) H 12/25/16 09:30 Ur Squamous Epith Cells Many per lpf (None-Few) H 12/25/16 09:30 - Clinical Findings Intake & Output: Intake & Output 12/27/16 12/28/16 12/28/16 23:59 07:59 15:59 Intake Total 240 / 240 Output Total 1600 / 1600 2600 / 2600 Balance -1360 / -1360 -2600 / -2600 Weight 88.9 kg Consult Discharge Plan - Plan Referrals: Theo,Ali N, INVESTIGATION MANAGER [Advanced Practice Nurse] - 01/01/17 2:15 pm NO,PCP [Primary Care Provider] -
[2016-12-28 08:43] LABS: Magnesium 1.7 mg/dL (1.6-2.6)
[2016-12-28] MEDS: Aspirin 81 MG TAB.CHEW PO SCH (09:43)
[2016-12-28] MEDS: Furosemide 40 MG/4 ML VIAL IVP SCH (09:43)
[2016-12-28] MEDS: predniSONE 20 MG TABLET PO SCH (09:43)
--- NOTE | 2016-12-28 10:25 | Internal Med Progress Note ---
Date of Encounter: 12/28/16 Time of Encounter: 10:25 - Assessment and plan (1) Acute exacerbation of chronic obstructive airways disease Current Visit: No Status: Acute Assessment and plan: With associated hypoxia, and worsening hypercapnia. Associated worsening of metabolic alkalosis. Patient at baseline is a chronic retainer. Metabolic alkalosis could have been worsened by use of Lasix for CHF management. Continue BiPAP prn Continue prednsione po, duonebs (2) Congestive heart failure Current Visit: Yes Status: Acute Assessment and plan: Patient has elevated BNP, with pleural effusion, leg swelling. TTE shows EF 40%, moderately dilated right atrium. Mildly dilated RV with normal function. Mild AR, mild TR. Moderate pulmonary hypertension. Cumulative I/O -16L 5 kg weight loss since admission Continue diuresis, Continue BB, ACEI Monitor renal function Evidence of suspected ischemia on ECHO s/p LHC, stable, no intervention Qualifiers: Congestive heart failure type: systolic Congestive heart failure chronicity : acute on chronic Qualified Code(s): I50.23 - Acute on chronic systolic ( congestive) heart failure (3) HTN (hypertension) Current Visit: Yes Status: Chronic Assessment and plan: BP is stable, continue current medications Qualifiers: Hypertension type: essential hypertension Qualified Code(s): I10 - Essential (primary) hypertension (4) UTI (urinary tract infection) Current Visit: Yes Status: Acute Assessment and plan: Urine culture from 11/26 not able to interpret D/C rocephin Qualifiers: Urinary tract infection type: acute cystitis Hematuria presence: without hematuria Qualified Code(s): N30.00 - Acute cystitis without hematuria (5) Diabetes Current Visit: Yes Status: Chronic Assessment and plan: A1C 7.7 Continue sliding scale ADA diet FS ACHS Qualifiers: Diabetes mellitus type: type 2 Diabetes mellitus complication status: with unspecified complications Diabetes mellitus terminal clerk insulin use: unspecified chcf insulin use status Qualified Code(s): E11.8 - Type 2 diabetes mellitus with unspecified complications (6) Smoker Current Visit: Yes Status: Chronic Assessment and plan: Tobacco cessation counselling done for 3 minutes (7) Acute and chronic respiratory failure Current Visit: Yes Status: Acute Assessment and plan: Due to COPD and CHF exacerbation. ABG not repeated, patient is clinically stable Continue management of underlying COPD and CHF. IPAp 16/EPAP 6, FiO2 40% Continue current management Qualifiers: Respiratory failure complication: hypoxia and hypercapnia Qualified Code(s) : J96.21 - Acute and chronic respiratory failure with hypoxia; J96.22 - Acute and chronic respiratory failure with hypercapnia (8) Pleural effusion Current Visit: Yes Status: Acute Assessment and plan: Most likely due to CHF. s/p therapeutic thoracentensis today Follow work up (9) Elevated troponin Current Visit: Yes Status: Acute Assessment and plan: As in CHF (10) DVT prophylaxis Current Visit: Yes Status: Acute Assessment and plan: Heparin drip d/tu on DVT heprain dose (11) Ecchymosis Current Visit: Yes Status: Acute Assessment and plan: Left forearm Improved - Subjective Interval history: Seen and evaluated at bedside 71 Y/O F being managed for acute on chronic respiratory failure , COPDE, Acute on chronic CHF, UTI She has a PMH of Obesity, DM, HTN, Tobacco abuse Denies new complains Vitals are stable I/O cumulative -16L. Weight loss from 103kg to 88kg Metabolic alkalosis improving with diamox, renal function stable Patient will need PT/OT eval today and qualification for home BiPAP and O2 prior to d/c s/p [facility] 12/27: Mild CAD, no intervention, EF 35-40% - Constitutional Vitals: Temp Pulse Resp BP Pulse Ox 97.8 F 63 16 128/64 94 12/28/16 07:39 12/28/16 09:44 12/28/16 07:46 12/28/16 07:39 12/28/16 09:44 General appearance: Present: A&O X 3, answers questions appropriately Exam: VSS, O2 sat 92-96% on 40% FiO2 on BIAPAP Gen: Not in any form of distress, speaks full sentences, Neuro: AAOX3, moves all limbs spontaneously, no focal deficits, no speech abnormality or facial asymmetry HEENT: Moist mucosa, no cyanosis, AMAN Chest: Clear to auscultation bilaterally, no wheezes, no rhonchi, no stridor. Heart: S1, S2, no m/g/r Abdomen: Soft, not tender, no palpably enlarged organs Extremities: Bilateral 2+ pitting pedal edema, improved significantly, pulses present and equal bilaterally Left extremity with diffuse ecchymosis , improving, in the antecubital fossa possibly from previous intravenous access site. No tenderness. Distally the left arm is neurovascularly intact. Right groin with no visible abscesses or swelling, both lower extremities are edematous, no differential warmth Internal Medicine: Result - Labs CBC & Chem 7: 12/28/16 04:17 12/28/16 04:17 Labs: Short CBC 12/28/16 Range/Units 04:17 WBC 5.2 (4.3-11.1) K/mcL Hgb 11.8 (11.5-15.4) g/dL Hct 39.4 (35.3-44.9) % Plt Count 86 L (140-400) K/mcL Neutrophils # 3.4 (1.6-8.9) K/mcL BMP 12/28/16 04:17 Sodium 142 Potassium 4.3 Chloride 97 L Carbon Dioxide 39 H BUN 25 H Creatinine 0.81 Glucose 136 H Calcium 7.8 L - ABG Interpretation ABG results: ABG ABG pH 7.37 pH Units (7.32-7.45) 12/26/16 07:49 ABG pCO2 79 mmHg (35-45) H* 12/26/16 07:49 ABG pO2 60 mmHg (85-104) L 12/26/16 07:49 ABG O2 Saturation 90 % (95-98) L 12/26/16 07:49 PT/INR, D-dimer PT 11.4 Seconds (9.4-12.1) 12/24/16 13:16 Consult Discharge Plan - Plan Referrals: Demond Venegas, MISSION COORDINATOR [Advanced Practice Nurse] - 01/01/17 2:15 pm NO,PCP [Primary Care Provider] -
--- NOTE | 2016-12-28 11:59 | Procedure Note ---
Date of procedure: 12/28/16 Pre-op diagnosis: Pleural Effusion Post-op diagnosis: same Procedure: A time-out was completed verifying correct patient, procedure, site, positioning , and special equipment if applicable. An U/S was used wto locate a large pocket of fluid and the area was marked. The patients Right side was prepped and draped in a sterile manner after the appropriate infiltration level was confirmed by ultrasound. 1% lidocaine was used anesthetize the surrounding skin. A finder needle was then used to locate fluid and clear yellow fluid was obtained. A 10-blade scalpel used to make the incision. The thoracentesis catheter was then threaded without difficulty. The patient had 1400mL of clear yellow fluid removed. A post-procedure chest x-ray was ordered and the fluid will be sent for several studies. No immediate complications Surgeon: Jj Guerra Pathology: other (cytology) Condition: stable Disposition: no change
[2016-12-28 12:32] LABS: INR 1.1; Prothrombin Time 11.4 Seconds (9.4-12.1)
[2016-12-28 13:17] LABS: Glucose,Pleural Fluid 164 mg/dL (No Ref Range)
[2016-12-28 13:39] LABS: RBC,Pleural Fluid < 0.002 M/mcL
[2016-12-28 14:49] LABS: Lymphocytes,Pleural Fluid 76.2 %; Monocytes,Pleural Fluid 9.5 %
[2016-12-28 14:50] LABS: Appearance of Pleural Fl Clear (Clear)
--- NOTE | 2016-12-28 17:38 | Electrocardiograph Report ---
[address] [place] [address] Test Date: 2016-12-27 Pat Name: Nata Fontanez Department: 110 Room: 2N08 Gender: F Injection Molder: : 1945 Requested By: Simon Keane Order Number: [id number] Reading MD: Yamilka Covington Measurements Intervals [place] Rate: 66 P: 39 MA: 167 QRS: -46 QRSD: 128 T: 161 QT: 450 QTc: 463 Interpretive Statements SINUS RHYTHM LEFT ANTERIOR FASCICULAR BLOCK POSSIBLE ANTERIOR MYOCARDIAL INFARCTION, OF INDETERMINATE AGE Electronically Signed On 12-28-2016 17:36:32 EDT by Yamilka Covington
[2016-12-29] MEDS: Ipratropium/Albuterol Neb 3 ML IH SCH ×6 (00:24→20:10)
[2016-12-29] MEDS: *HR* Heparin 5,000 UNIT/ML VIAL SQ SCH ×2 (06:07→17:27)
[2016-12-29] MEDS: Insulin LISPRO 300 UNITS/3 ML VIAL SQ SCH ×4 (07:35→20:47)
[2016-12-29] MEDS: Furosemide 40 MG TABLET PO SCH (09:25)
[2016-12-29] MEDS: Insulin DETEMIR 100 UNIT/ML X5UNITS SQ SCH ×2 (09:25→20:47)
[2016-12-29] MEDS: predniSONE 20 MG TABLET PO SCH (09:25)
[2016-12-29] MEDS: Aspirin 81 MG TAB.CHEW PO SCH (09:25)
[2016-12-29 09:40] LABS: BUN/Creatinine Ratio 33 (6-26); Blood Urea Nitrogen 25 mg/dL (7-20); Calcium 8.3 mg/dL (8.6-10.8); Carbon Dioxide 38 mEq/L (19-29); Chloride 101 mEq/L (98-109); Glucose 137 mg/dL (70-99); Osmolality,Calculated 299 (280-300); Potassium 4.4 mEq/L (3.5-4.5); Sodium 141 mEq/L (136-145); eGFR For African Americans > 60 (> 60); eGFR For Non-African Americans > 60 (> 60)
--- NOTE | 2016-12-29 09:54 | Internal Med Progress Note ---
Date of Encounter: 12/29/16 Time of Encounter: 09:53 - Assessment and plan (1) Acute exacerbation of chronic obstructive airways disease Current Visit: Yes Status: Acute Assessment and plan: With associated hypoxia, and worsening hypercapnia. Associated worsening of metabolic alkalosis. Patient at baseline is a chronic retainer. Metabolic alkalosis could have been worsened by use of Lasix for CHF management. Continue BiPAP prn Continue prednsione po, duonebs Start prednisone taper, will need 2 wks per pulmonology recommendation (2) Congestive heart failure Current Visit: Yes Status: Acute Assessment and plan: Patient has elevated BNP, with pleural effusion, leg swelling. TTE shows EF 40%, moderately dilated right atrium. Mildly dilated RV with normal function. Mild AR, mild TR. Moderate pulmonary hypertension. Cumulative I/O -25L 20 kg weight loss since admission Continue diuresis, change lasix to po Continue BB, ACEI Monitor renal function Evidence of suspected ischemia on ECHO s/p LHC, stable, no intervention Qualifiers: Congestive heart failure type: systolic Congestive heart failure chronicity : acute on chronic Qualified Code(s): I50.23 - Acute on chronic systolic ( congestive) heart failure (3) HTN (hypertension) Current Visit: Yes Status: Chronic Assessment and plan: BP is stable, continue current medications Qualifiers: Hypertension type: essential hypertension Qualified Code(s): I10 - Essential (primary) hypertension (4) UTI (urinary tract infection) Current Visit: Yes Status: Acute Assessment and plan: Urine culture from 11/26 not able to interpret D/C rocephin, completed 5 days of therapy Qualifiers: Urinary tract infection type: acute cystitis Hematuria presence: without hematuria Qualified Code(s): N30.00 - Acute cystitis without hematuria (5) Diabetes Current Visit: Yes Status: Chronic Assessment and plan: A1C 7.7 Continue sliding scale , added basal and prandial insulin ADA diet FS ACHS Qualifiers: Diabetes mellitus type: type 2 Diabetes mellitus complication status: with unspecified complications Diabetes mellitus halfway insulin use: unspecified halfway insulin use status Qualified Code(s): E11.8 - Type 2 diabetes mellitus with unspecified complications (6) Smoker Current Visit: Yes Status: Chronic Assessment and plan: Tobacco cessation counselling done for 3 minutes (7) Acute and chronic respiratory failure Current Visit: Yes Status: Acute Assessment and plan: Due to COPD and CHF exacerbation. ABG not repeated, patient is clinically stable Continue management of underlying COPD and CHF. Continue O2 by [place] Continue current management Qualifiers: Respiratory failure complication: hypoxia and hypercapnia Qualified Code(s) : J96.21 - Acute and chronic respiratory failure with hypoxia; J96.22 - Acute and chronic respiratory failure with hypercapnia (8) Pleural effusion Current Visit: Yes Status: Acute Assessment and plan: Most likely due to CHF. s/p therapeutic thoracentensis today Pleural fluid culture prelim negative, work up noted (9) Elevated troponin Current Visit: Yes Status: Acute Assessment and plan: As in CHF (10) DVT prophylaxis Current Visit: Yes Status: Acute Assessment and plan: Continue DVT heparin dose (11) Ecchymosis Current Visit: Yes Status: Acute Assessment and plan: Left forearm Improved - Subjective Interval history: Seen and evaluated at bedside 71 Y/O F being managed for acute on chronic respiratory failure , COPDE, Acute on chronic CHF, UTI She has a PMH of Obesity, DM, HTN, Tobacco abuse Denies new complains Vitals are stable I/O cumulative -25L. Weight loss from 103kg to 83kg Metabolic alkalosis improved with diamox, discontinued renal function stable s/p LHC /: Mild CAD, no intervention, EF 35-40% PT/OT recommends SNF, patient states categorically that she bob prefer to go back home to care for her son She will need O2 and BiPAP qualification prior to discharge - Constitutional Vitals: Temp Pulse Resp BP Pulse Ox 98.1 F 74 16 136/74 93 12/29/16 07:27 12/29/16 07:27 12/29/16 07:51 12/29/16 07:51 12/29/16 07:51 General appearance: Present: A&O X 3, answers questions appropriately Exam: VSS, O2 sat 92-96% on 6L high flow nasal canula Gen: Not in any form of distress, speaks full sentences, significant clinical improvement Neuro: AAOX3, moves all limbs spontaneously, no focal deficits, no speech abnormality or facial asymmetry HEENT: Moist mucosa, no cyanosis, AMAN Chest: Clear to auscultation bilaterally, no wheezes, no rhonchi, no stridor. Posterior chest wall dressing clean and dry Heart: S1, S2, no m/g/r Abdomen: Soft, not tender, no palpably enlarged organs Extremities: Bilateral 1+ pitting pedal edema, improved significantly, pulses present and equal bilaterally Left extremity with diffuse ecchymosis , improving, in the antecubital fossa possibly from previous intravenous access site. No tenderness. Distally the left arm is neurovascularly intact. Right groin with no visible abscesses or swelling, both lower extremities are edematous, no differential warmth Internal Medicine: Result - Labs CBC & Chem 7: 12/28/16 04:17 12/29/16 09:20 Labs: BMP 12/29/16 09:20 Sodium 141 Potassium 4.4 Chloride 101 Carbon Dioxide 38 H BUN 25 H Creatinine 0.76 Glucose 137 H Calcium 8.3 L - ABG Interpretation ABG results: ABG ABG pH 7.37 pH Units (7.32-7.45) 12/26/16 07:49 ABG pCO2 79 mmHg (35-45) H* 12/26/16 07:49 ABG pO2 60 mmHg (85-104) L 12/26/16 07:49 ABG O2 Saturation 90 % (95-98) L 12/26/16 07:49 PT/INR, D-dimer PT 11.4 Seconds (9.4-12.1) 12/28/16 12:15 - Impressions Impressions Chest X-Ray 12/28/16 11:54 IMPRESSION: 1. Persistent enlargement of the cardiac silhouette. 2. Bilateral pleural effusions, which appears decreased on the right. 3. Bibasilar atelectasis. 4. No evidence of pneumothorax. D/ / Marcelino Rhodes MD / Marcelino Rhodes MD Interpreting Provider: Marcelino Rhodes MD Consult Discharge Plan - Plan Referrals: Demond Venegas, ENGINEERING GROUP LEADER [Advanced Practice Nurse] - 01/01/17 2:15 pm NO,PCP [Primary Care Provider] -
[2016-12-29] MEDS: *HR* OxyCODONE/APAP 5/325 TABLET PO PRN (23:24)
[2016-12-30] MEDS: Ipratropium/Albuterol Neb 3 ML IH SCH ×6 (00:16→20:16)
[2016-12-30 04:20] LABS: BUN/Creatinine Ratio 34 (6-26); Blood Urea Nitrogen 21 mg/dL (7-20); Carbon Dioxide 30 mEq/L (19-29); Chloride 109 mEq/L (98-109); Glucose 86 mg/dL (70-99); Osmolality,Calculated 296 (280-300); Potassium 3.7 mEq/L (3.5-4.5); Sodium 142 mEq/L (136-145); eGFR For African Americans > 60 (> 60); eGFR For Non-African Americans > 60 (> 60)
[2016-12-30] MEDS: *HR* Heparin 5,000 UNIT/ML VIAL SQ SCH ×2 (05:25→16:34)
[2016-12-30] MEDS: Insulin LISPRO 300 UNITS/3 ML VIAL SQ SCH ×4 (08:32→20:01)
[2016-12-30] MEDS: Furosemide 40 MG TABLET PO SCH (08:33)
[2016-12-30] MEDS: Aspirin 81 MG TAB.CHEW PO SCH (08:33)
[2016-12-30] MEDS: predniSONE 20 MG TABLET PO SCH (08:33)
[2016-12-30] MEDS: Insulin DETEMIR 100 UNIT/ML X5UNITS SQ SCH ×2 (08:37→20:00)
--- NOTE | 2016-12-30 10:04 | Internal Med Progress Note ---
Date of Encounter: 12/30/16 Time of Encounter: 10:04 - Assessment and plan (1) Acute exacerbation of chronic obstructive airways disease Current Visit: Yes Status: Acute Assessment and plan: With associated hypoxia, and worsening hypercapnia. Associated worsening of metabolic alkalosis. Patient at baseline is a chronic retainer. Metabolic alkalosis could have been worsened by use of Lasix for CHF management. Continue BiPAP prn Continue prednsione po, duonebs Start prednisone taper, will need 2 wks per pulmonology recommendation (2) Congestive heart failure Current Visit: Yes Status: Acute Assessment and plan: Patient has elevated BNP, with pleural effusion, leg swelling. TTE shows EF 40%, moderately dilated right atrium. Mildly dilated RV with normal function. Mild AR, mild TR. Moderate pulmonary hypertension. Cumulative I/O -31L >20 kg weight loss since admission Continue po lasix Continue BB, ACEI Monitor renal function Evidence of suspected ischemia on ECHO s/p LHC, stable, no intervention D?C Zaidi catheter Qualifiers: Congestive heart failure type: systolic Congestive heart failure chronicity : acute on chronic Qualified Code(s): I50.23 - Acute on chronic systolic ( congestive) heart failure (3) HTN (hypertension) Current Visit: Yes Status: Chronic Assessment and plan: BP is stable, continue current medications Qualifiers: Hypertension type: essential hypertension Qualified Code(s): I10 - Essential (primary) hypertension (4) UTI (urinary tract infection) Current Visit: Yes Status: Acute Assessment and plan: Urine culture from 11/26 not able to interpret D/C rocephin, completed 5 days of therapy Qualifiers: Urinary tract infection type: acute cystitis Hematuria presence: without hematuria Qualified Code(s): N30.00 - Acute cystitis without hematuria (5) Diabetes Current Visit: Yes Status: Chronic Assessment and plan: A1C 7.7 Continue sliding scale , added basal and prandial insulin ADA diet FS ACHS Qualifiers: Diabetes mellitus type: type 2 Diabetes mellitus complication status: with unspecified complications Diabetes mellitus halfway insulin use: unspecified halfway insulin use status Qualified Code(s): E11.8 - Type 2 diabetes mellitus with unspecified complications (6) Smoker Current Visit: Yes Status: Chronic Assessment and plan: Tobacco cessation counselling done for 3 minutes (7) Acute and chronic respiratory failure Current Visit: Yes Status: Acute Assessment and plan: Due to COPD and CHF exacerbation. ABG not repeated, patient is clinically stable Continue management of underlying COPD and CHF. Continue O2 by [place] Continue current management Qualifiers: Respiratory failure complication: hypoxia and hypercapnia Qualified Code(s) : J96.21 - Acute and chronic respiratory failure with hypoxia; J96.22 - Acute and chronic respiratory failure with hypercapnia (8) Pleural effusion Current Visit: Yes Status: Acute Assessment and plan: Most likely due to CHF. s/p therapeutic thoracentensis today Pleural fluid culture negative, work up noted (9) Elevated troponin Current Visit: Yes Status: Acute Assessment and plan: As in CHF (10) DVT prophylaxis Current Visit: Yes Status: Acute Assessment and plan: Continue DVT heparin dose (11) Ecchymosis Current Visit: Yes Status: Acute Assessment and plan: Left forearm Improved - Subjective Interval history: Seen and evaluated at bedside 71 Y/O F being managed for acute on chronic respiratory failure , COPDE, Acute on chronic CHF, UTI She has a PMH of Obesity, DM, HTN, Tobacco abuse Denies new complains Vitals are stable I/O cumulative -31. Weight loss from 103kg to 81kg Metabolic alkalosis improved with diamox, discontinued renal function stable s/p LHC 5/: Mild CAD, no intervention, EF 35-40% PT/OT recommends SNF, patient states categorically that she bob prefer to go back home to care for her son She will need O2 and BiPAP qualification prior to discharge - Constitutional Vitals: Temp Pulse Resp BP Pulse Ox 97.4 F L 66 20 121/66 98 12/30/16 07:57 12/30/16 07:57 12/30/16 08:31 12/30/16 07:57 12/30/16 08:31 General appearance: Present: A&O X 3, answers questions appropriately Exam: VSS, O2 sat 92-96% on 3L high flow nasal canula Gen: Not in any form of distress, speaks full sentences, significant clinical improvement Neuro: AAOX3, moves all limbs spontaneously, no focal deficits, no speech abnormality or facial asymmetry HEENT: Moist mucosa, no cyanosis, AMAN Chest: Clear to auscultation bilaterally, no wheezes, no rhonchi, no stridor. Heart: S1, S2, no m/g/r Abdomen: Soft, not tender, no palpably enlarged organs Extremities: Bilateral 1+ pitting pedal edema, improved significantly, pulses present and equal bilaterally Left extremity with diffuse ecchymosis , improving, in the antecubital fossa possibly from previous intravenous access site. No tenderness. Distally the left arm is neurovascularly intact. Right groin with no visible abscesses or swelling, both lower extremities are edematous, no differential warmth Internal Medicine: Result - Labs CBC & Chem 7: 12/28/16 04:17 12/30/16 04:00 Labs: BMP 12/30/16 04:00 Sodium 142 Potassium 3.7 Chloride 109 Carbon Dioxide 30 H BUN 21 H Creatinine 0.61 Glucose 86 Calcium 7.0 L D - ABG Interpretation ABG results: ABG ABG pH 7.37 pH Units (7.32-7.45) 12/26/16 07:49 ABG pCO2 79 mmHg (35-45) H* 12/26/16 07:49 ABG pO2 60 mmHg (85-104) L 12/26/16 07:49 ABG O2 Saturation 90 % (95-98) L 12/26/16 07:49 PT/INR, D-dimer PT 11.4 Seconds (9.4-12.1) 12/28/16 12:15 Consult Discharge Plan - Plan Referrals: Demond Venegas, PRESTIDIGITATOR [Advanced Practice Nurse] - 01/01/17 2:15 pm NO,PCP [Primary Care Provider] -
--- NOTE | 2016-12-30 17:56 | Electrocardiograph Report ---
[place] [address] Test Date: 2016-12-29 Pat Name: Nata Fontanez Department: 110 Room: 2N08 Gender: F Sas Etl Developer: TERESO : 1945 Requested By: Simon Keane Order Number: [id number] Reading MD: Lissy Zavala Measurements Intervals [place] Rate: 75 P: 70 WI: 170 QRS: -72 QRSD: 127 T: 96 QT: 405 QTc: 434 Interpretive Statements SINUS RHYTHM LEFT ANTERIOR FASCICULAR BLOCK NONSPECIFIC ST ABNORMALITIES Electronically Signed On 12-30-2016 17:55:08 EDT by Lissy Zavala
[2016-12-31] MEDS: Ipratropium/Albuterol Neb 3 ML IH SCH ×5 (00:13→16:09)
[2016-12-31 05:18] LABS: BUN/Creatinine Ratio 41 (6-26); Blood Urea Nitrogen 26 mg/dL (7-20); Carbon Dioxide 34 mEq/L (19-29); Chloride 103 mEq/L (98-109); Glucose 77 mg/dL (70-99); Osmolality,Calculated 296 (280-300); Potassium 4.6 mEq/L (3.5-4.5); Sodium 141 mEq/L (136-145); eGFR For African Americans > 60 (> 60); eGFR For Non-African Americans > 60 (> 60)
[2016-12-31 05:19] LABS: Calcium 8.4 mg/dL (8.6-10.8)
[2016-12-31] MEDS: *HR* Heparin 5,000 UNIT/ML VIAL SQ SCH (06:07)
[2016-12-31] MEDS: Insulin LISPRO 300 UNITS/3 ML VIAL SQ SCH ×2 (07:59→12:06)
[2016-12-31] MEDS ORDERED: predniSONE 20 MG TABLET PO SCH (09:00)
[2016-12-31] MEDS: Furosemide 40 MG TABLET PO SCH (09:16)
[2016-12-31] MEDS: Aspirin 81 MG TAB.CHEW PO SCH (09:16)
[2016-12-31] MEDS: Insulin DETEMIR 100 UNIT/ML X5UNITS SQ SCH (09:17)
--- NOTE | 2016-12-31 10:08 | Discharge Summary ---
Date of Encounter: 12/31/16 Time of Encounter: 10:08 - Discharge Diagnosis (1) Acute exacerbation of chronic obstructive airways disease Priority: Primary Status: Resolved (2) Congestive heart failure Priority: Primary Status: Acute Qualifiers: Congestive heart failure type: systolic Congestive heart failure chronicity : acute on chronic Qualified Code(s): I50.23 - Acute on chronic systolic ( congestive) heart failure (3) HTN (hypertension) Priority: Secondary Status: Chronic Qualifiers: Hypertension type: essential hypertension Qualified Code(s): I10 - Essential (primary) hypertension (4) UTI (urinary tract infection) Priority: Primary Status: Resolved Qualifiers: Urinary tract infection type: acute cystitis Hematuria presence: without hematuria Qualified Code(s): N30.00 - Acute cystitis without hematuria (5) Diabetes Priority: Secondary Status: Chronic Qualifiers: Diabetes mellitus type: type 2 Diabetes mellitus complication status: with unspecified complications Diabetes mellitus usp insulin use: unspecified custom van converter insulin use status Qualified Code(s): E11.8 - Type 2 diabetes mellitus with unspecified complications (6) Smoker Priority: Secondary Status: Chronic (7) Acute and chronic respiratory failure Priority: Primary Status: Acute Qualifiers: Respiratory failure complication: hypoxia and hypercapnia Qualified Code(s) : J96.21 - Acute and chronic respiratory failure with hypoxia; J96.22 - Acute and chronic respiratory failure with hypercapnia (8) Pleural effusion Priority: Secondary Status: Resolved (9) Elevated troponin Priority: Secondary Status: Resolved (10) DVT prophylaxis Priority: Secondary Status: Acute (11) Ecchymosis Priority: Secondary Status: Resolved - Discharge Medications Prescriptions: Albuterol Sulfate [Albuterol Inhaler] 2 puff IH Q4H PRN #2 inh PRN Reason: Shortness Of Breath Aspirin 81 mg PO DAILY #30 tab.chew Budesonide/Formoterol 160/4.5 [Symbicort 160/4.5] 2 puff IH BIDR #2 inhaler Carvedilol [Coreg] 12.5 mg PO BIDWM #60 tablet Docusate [Colace] 100 mg PO BID PRN #60 capsule PRN Reason: Constipation Furosemide [Lasix] 40 mg PO DAILY #30 tablet Lisinopril [Zestril] 5 mg PO DAILY #30 tablet Metformin [Glucophage] 500 mg PO BIDWM #60 tablet Omeprazole [PriLOSEC] 20 mg PO DAILY@0630 #30 capsule. PredniSONE See Taper PO DAILY #30 tablet Home Medications: Albuterol Sulfate [Albuterol Inhaler] 2 puff IH Q4H PRN #2 inh 12/31/16 [Rx] Aspirin 81 mg PO DAILY #30 tab.chew 12/31/16 [Rx] Budesonide/Formoterol 160/4.5 [Symbicort 160/4.5] 2 puff IH BIDR #2 inhaler 04/11 [Rx] Carvedilol [Coreg] 12.5 mg PO BIDWM #60 tablet 12/31/16 [Rx] Docusate [Colace] 100 mg PO BID PRN #60 capsule 12/31/16 [Rx] Furosemide [Lasix] 40 mg PO DAILY #30 tablet 12/31/16 [Rx] Lisinopril [Zestril] 5 mg PO DAILY #30 tablet 12/31/16 [Rx] Metformin [Glucophage] 500 mg PO BIDWM #60 tablet 12/31/16 [Rx] Omeprazole [PriLOSEC] 20 mg PO DAILY@0630 #30 capsule. 12/31/16 [Rx] PredniSONE See Taper PO DAILY #30 tablet 12/31/16 [Rx] Allergies/Adverse Reactions: Allergies No Known Allergies Allergy (Verified 12/24/16 12:54) Procedures/tests Complete & Pending: Procedures Performed prior 72 hours Category Date Time Status ECG 12 lead ECG [ECG] Routine Y 12/29/16 08:27 Completed Date of admission: 12/23/16 19:24 Primary care physician: PCP NO Consults: 12/23/16 19:28 Consult to Cardiology [CONS] Routine Comment: Consulting Provider: [facility] Reason for Consult: nstemi and chf Time Notified: 19:29 Call Completed: No 12/25/16 10:23 Consult to Pulmonology [CONS] Routine Consulting Provider: [facility] Reason for Consult: SOB, wheezes Call Completed: Yes 12/28/16 13:23 Consult to Occupational Therapy [CONS] Routine Comment: Evaluate, develop and implement POC Reason for Consult: Discharge dispo Consult to Physical Therapy [CONS] Routine Comment: Evaluate, develop and implement POC Reason for Consult: Discharge dispo 12/30/16 08:00 Consult to Playground Equipment [employer] [CONS] Routine Reason for SW Consult: Home services, and home O2 Discharging clinician: Simon Keane Anticipated date of discharge: 12/31/16 - Patient Status Disposition: Home Health Service Condition: Fair Functional capacity at discharge: uses cane/walker Overall status at discharge: patient is progressing back to baseline - Discharge Instructions Follow Up With: Demond Venegas, BRAKE REPAIRER [Advanced Practice Nurse] - 01/01/17 2:15 pm NO,PCP [Primary Care Provider] - [facility] [Provider Group] [facility] [Provider Group] - Diet and Activity Activity: as per physical therapy, wear oxygen at all times Diet: low salt diet Interval History: See below Hospital course: Ms. Fontanez is a 71 year old female with PMH of Obesity, DM, HTN, Tobacco abuse She presented with dificulty breathing and leg swelling She was admitted and managed for management of acute on chronic hypoxic and hypercapneic respiratory failure, acute CHF exacerbation, Urinary tract infection, DM She is seen at bedside and plan is for discharge to SNF as recommended by PT/ OT. Patient however, persistently declined rehab and has decided to be discharged home with services At the time the patient was admitted , she was not taking any home medication per chart. *Acute on Chronic Hypoxic and Hypercapneic respiratory failure secondry to CHF exacerbation and COPD exacerbation, Massive pleural effusion Patient had associated worsening of metabolic alkalosis with evidence she is at baseline is a chronic retainer. She was managed with BIPAP, O2 supplementation , aggressive diuresis with diamox and lasix and she also had thoracentensis . Her cumulative negative output this admission was -31L. Pleural fluid work up shoed transudate with negative culture ECHO done shows EF 40%, moderately dilated right atrium. Mildly dilated RV with normal function. Mild AR, mild TR. Moderate pulmonary hypertension. She had elevated BNP on admission as well as elevated troponins She had a cardiac cath done which showed mild coronary disease, and LV dysfunction, EF 35-40%. There was no intervention. She is discharged on BB, ACEI, Lasix, Prednisone taper, Home oxygen, albuterol and Symbicort inhalers. Her A1C is 7.7, she was managed on insulin sliding scale, basal and prandial insulin. Her renal function is normal and she is discharged on metformin 500mg bid only. She completed 5 days of therapy for UTI. She is clinically stable for discharge She will be given appointments with PCP, Pulmonology, Cardiology Tobacco cessation counselling done for 3 minutes, she declined NRT Time spent discussing smoking cessation with patient: 3 to 10 minutes (3 mins spent on counselling on tobacco cessation) - Time Spent with Patient Total time spent providing and/or coordinating discharge services: Greater than 30 minutes (50 minutes spent on preapring Ms Fontanez's discharge co -rdinating with SW, prescriptions) - Constitutional Vitals: Temp Pulse Resp BP Pulse Ox 98.0 F 73 18 128/54 92 12/31/16 07:42 12/31/16 07:42 12/31/16 07:42 12/31/16 07:42 12/31/16 09:15 General appearance: Present: A&O X 3, answers questions appropriately Exam: VSS, O2 sat 92-96% on 6L high flow nasal canula Gen: Not in any form of distress, speaks full sentences, significant clinical improvement Neuro: AAOX3, moves all limbs spontaneously, no focal deficits, no speech abnormality or facial asymmetry HEENT: Moist mucosa, no cyanosis, AMAN Chest: Clear to auscultation bilaterally, no wheezes, no rhonchi, no stridor. Heart: S1, S2, no m/g/r Abdomen: Soft, not tender, no palpably enlarged organs Extremities: Wrinkled skin with significant improved bilateral edema, trace edema bilaterally
[2016-12-31 11:08] VITALS: BP 105/57
--- NOTE | 2016-12-31 12:03 | Physician Discharge Referral ---
Home Health/Hosp Referral Info Transfer to: Home Health Attending Provider: Dr. Keane Provider in Charge Post Discharge: PCP - Diagnosis (1) Acute exacerbation of chronic obstructive airways disease Priority: Primary Status: Resolved (2) Congestive heart failure Priority: Primary Status: Resolved (3) HTN (hypertension) Priority: Secondary Status: Chronic (4) UTI (urinary tract infection) Priority: Primary Status: Resolved (5) Diabetes Priority: Secondary Status: Chronic (6) Smoker Priority: Secondary Status: Chronic (7) Acute and chronic respiratory failure Priority: Primary Status: Resolved (8) Pleural effusion Priority: Primary Status: Resolved (9) Elevated troponin Priority: Primary Status: Resolved (10) DVT prophylaxis Priority: Secondary Status: Acute (11) Ecchymosis Priority: Secondary Status: Resolved - Respiratory Orders Oxygen / L per min (6L per minute, target O2 saturation of) Smoking Cessation: Smoking cessation has been advised. For more information, call the [place] Tobacco Quit Line at 7-955-MPRT-NOW. - Diet/Nutrition Diet/Nutrition Orders: Cardiac - Activity Activity Orders: Up ad forrest - Services Needed Following services are medically necessary services: Nursing, Home Health Aide, Physical Therapy, Occupational Therapy, Med Social Work - Transfer Medications Prescriptions: Albuterol Neb [Proventil Neb] 3 mg IH Q6H PRN #30 inhsol PRN Reason: Shortness Of Breath/Wheezing Aspirin 81 mg PO DAILY #30 tab.chew Budesonide/Formoterol 160/4.5 [Symbicort 160/4.5] 2 puff IH BIDR #2 inhaler Carvedilol [Coreg] 12.5 mg PO BIDWM #60 tablet Docusate [Colace] 100 mg PO BID PRN #60 capsule PRN Reason: Constipation Furosemide [Lasix] 40 mg PO DAILY #30 tablet Lisinopril [Zestril] 5 mg PO DAILY #30 tablet Metformin [Glucophage] 500 mg PO BIDWM #60 tablet Omeprazole [PriLOSEC] 20 mg PO DAILY@0630 #30 capsule. PredniSONE See Taper PO DAILY #30 tablet Home Medications: Albuterol Neb [Proventil Neb] 3 mg IH Q6H PRN #30 inhsol 12/31/16 [Rx] Aspirin 81 mg PO DAILY #30 tab.chew 12/31/16 [Rx] Budesonide/Formoterol 160/4.5 [Symbicort 160/4.5] 2 puff IH BIDR #2 inhaler 04/11 [Rx] Carvedilol [Coreg] 12.5 mg PO BIDWM #60 tablet 12/31/16 [Rx] Docusate [Colace] 100 mg PO BID PRN #60 capsule 12/31/16 [Rx] Furosemide [Lasix] 40 mg PO DAILY #30 tablet 12/31/16 [Rx] Lisinopril [Zestril] 5 mg PO DAILY #30 tablet 12/31/16 [Rx] Metformin [Glucophage] 500 mg PO BIDWM #60 tablet 12/31/16 [Rx] Omeprazole [PriLOSEC] 20 mg PO DAILY@0630 #30 capsule. 12/31/16 [Rx] PredniSONE See Taper PO DAILY #30 tablet 12/31/16 [Rx] Allergies/Adverse Reactions: Allergies No Known Allergies Allergy (Verified 12/24/16 12:54) Certification: Further, I certify that my clinical findings support that this patient is homebound (i.e. absences from home require considerable and taxing effort and are for medical reasons or voodoo services or infrequently or short duration when for other reasons) because: Homebound Reason: Patient requires assistance of a person or device to safely leave home, Severity of cardiac or pulmonary status limits activity tolerance Attestation: My signature below is to certify that this patient is under my care and that I, or nurse practitioner, or a physician's medical assistant working with me, has a face-to -face encounter with this patient.
== END 2016-12-31 17:38 | disposition home health service (06) | DRG 286 ==
LOC: 2NNU → SUATTDRO 19:24
PROVIDERS: ADMIT Hospitalist; ATTEND Internal Medicine